=== PATIENT | female | born 1955 | race Caucasian/White ===

== ENCOUNTER 2018-11-21 15:22 | Inpatient (IN) | payer SELFPAY ==
--- NOTE | 2018-11-21 15:31 | PDOC ---
History of Present Illness - General Stated Complaint: SEIZURE Time Seen by Provider: 11/21/18 15:31 History Source: Patient, Family Exam Limitations: Clinical Condition - History of Present Illness Initial Comments: History is limited bc patient is confused and post-ictal. History provided by patient's family members who are at bedside. 63 yo F w a hx of HTN on amlodipine and chronic headaches presents to the ER after she had a seizure at her primary care doctors office - Dr. Escudero. The patient became very stiff, started foaming at the mouth and lost control of her bowels and urine. The daughter states that her mom has not been feeling well for the past few days. She has been complaining of body aches, body pains, subjective fevers, decreased appetite, and bilateral stress like headache. The patient tried letting it pass but bc it did not go away she went to her PCP's office. The primary doc believes this might be the flu. The patient has no history of prior seizures. PCP: Carol Escudero - [phone] Neurologist: Natalya Eden - [phone] PSH: None reported Social Hx: Denies smoking, drinking, or other substance usage Allergies: NKA, NKDA Past History - Past Medical History Allergies/Adverse Reactions: Allergies Allergy/AdvReac Type Severity Reaction Status Date / Time No Known Allergies Allergy Verified 05/13/18 18:06 Home Medications: Ambulatory Orders Acetic Acid 2% Otic Soln [Vosol 2% Ear Drops -] 3 drop Q6H #1 bottle Azithromycin [Zithromax Z-WARREN (5 DAYS)] 250 mg PO DAILY #6 tablet 03/30/15 Asthma: Yes CVA: No COPD: No HTN: Yes - Surgical History Neurologic Surgery: (BACK) - Immunization History Immunization Up to Date: Yes - Suicide/Smoking/Psychosocial Hx Smoking History: Never smoked Have you smoked in the past 12 months: No Hx Alcohol Use: No Drug/Substance Use Hx: No Substance Use Type: None Review of Systems - Review of Systems Able to Perform ROS?: No (Patient is post-ictal) *Physical Exam - Physical Exam General Appearance: Yes: Nourished, Appropriately Dressed, Obese HEENT: positive: EOMI, JAVIER, Normal ENT Inspection, Normal Voice Neck: positive: Trachea midline, Supple. negative: Lymphadenopathy (R), Lymphadenopathy (L) Respiratory/Chest: positive: Lungs Clear, Normal Breath Sounds. negative: Respiratory Distress, Accessory Muscle Use Cardiovascular: positive: Regular Rhythm, Regular Rate, S1, S2 Vascular Pulses: Dorsalis-Pedis (R): 2+, Doralis-Pedis (L): 2+ Gastrointestinal/Abdominal: positive: Normal Bowel Sounds, Tender (RUQ), Soft Rectal Exam: positive: deferred Lymphatic: negative: Adenopathy Musculoskeletal: positive: Normal Inspection. negative: CVA Tenderness, Decreased Range of Motion Extremity: positive: Normal Capillary Refill, Normal Inspection, Normal Range of Motion Integumentary: positive: Dry, Warm, Pale Neurologic: positive: Normal Response, Confused, Disoriented ED Treatment Course - LABORATORY CBC & Chemistry Diagram: 11/21/18 15:46 11/21/18 15:46 Medical Decision Making - Medical Decision Making History is limited bc patient is confused and post-ictal. History provided by patient's family members who are at bedside. 63 yo F w a hx of HTN on amlodipine and chronic headaches presents to the ER after she had a seizure at her primary care doctors office - Dr. Escudero. The patient became very stiff, started foaming at the mouth and lost control of her bowels and urine. The daughter states that her mom has not been feeling well for the past few days. She has been complaining of body aches, body pains, subjective fevers, decreased appetite, and bilateral stress like headache. The patient tried letting it pass but bc it did not go away she went to her PCP's office. The primary doc believes this might be the flu. The patient has no history of prior seizures. VS: Febrile to 100.4, otherwise wnl DDx IBNLT: Seizure, brain bleed, PNA, cholecystitis, influenza, electrolyte/ metabolic disturbance Plan: Labs, Urine, Head CT, CXR, EKG, RUQ US, re-assess. Bedside RUQ US shows no stones or signs supportive of cholecystitis. Influenza A positive - Patient given tamiflu in ED. Head CT shows no acute pathology. Will admit patient to hospital as this is her first time seizure. Attending spoke with Dr. Clark as a neuro consult - " d/w dr clark, nuerology. recommend no AED at this time as first seizure in setting of infection, will see pt on admission as a consult. " - Consult placed to Dr. clark. *DC/Admit/Observation/Transfer Diagnosis at time of Disposition: Seizure, Influenza A - Discharge Dispostion Condition at time of disposition: Stable Decision to Admit order: Yes - Referrals - Patient Instructions - Post Discharge Activity
[2018-11-21] MEDS ORDERED: SODIUM CHLORIDE 1,000 ML IV ONE (15:36)
[2018-11-21 15:46] VITALS: BMI 24.7
[2018-11-21 16:22] LABS: BASO % 0.4 % (0-2.0); EOS % 0.5 % (0-4.5); HEMATOCRIT 36.4 % (32.4-45.2); HEMOGLOBIN 12.7 GM/dL (10.7-15.3); LYMPH % 8.9 % (8-40); MCH 32.1 pg (25.7-33.7); MCHC 34.8 g/dl (32.0-36.0); MEAN CELL VOLUME 92.2 fl (80-96); MEAN PLT VOLUME 11.1 fl (7.5-11.1); MONO % 9.7 % (3.8-10.2); NEUT % 80.5 % (42.8-82.8); PLATELET COUNT 127 K/MM3 (134-434); RBC 3.95 M/mm3 (3.60-5.2); RDW 13.2 % (11.6-15.6); WHITE BLOOD COUNT 7.5 K/mm3 (4.0-10.0)
[2018-11-21 16:40] LABS: ALBUMIN 3.5 g/dl (3.4-5.0); ALK PHOS 98 U/L (45-117); ANION GAP 8 MMOL/L (8-16); BILIRUBIN,TOTAL 0.4 mg/dL (0.2-1); BLOOD UREA NITROGEN 10 mg/dL (7-18); CALCIUM 8.7 mg/dL (8.5-10.1); CHLORIDE 101 mmol/L (98-107); CO2 23 mmol/L (21-32); CREATININE 0.7 mg/dL (0.55-1.3); GLUCOSE,RANDOM 107 mg/dL (74-106); POTASSIUM 3.4 mmol/L (3.5-5.1); SGOT/AST 28 U/L (15-37); SGPT/ALT 29 U/L (13-61); SODIUM 133 mmol/L (136-145); TOT PROT 7.7 g/dl (6.4-8.2)
[2018-11-21 16:48] LABS: INR 1.06 (0.83-1.09); PROTHROMBIN TIME (PATIENT) 12.5 SEC (9.7-13.0)
[2018-11-21 16:51] LABS: ACTIVATED PTT 36.1 SECONDS (25.2-36.5)
--- NOTE | 2018-11-21 17:10 | PDOC ---
Documentation entered by Willow Lema SCRIBE, acting as scribe for Zaida Hearn MD. Zaida Hearn MD: This documentation has been prepared by the Pita posada Adrianna, SCRIBE, under my direction and personally reviewed by me in its entirety. I confirm that the documentation accurately reflects all work, treatment, procedures, and medical decision making performed by me. Attending Attestation - Resident Resident Name: Ranjith Burdick - ED Attending Attestation I have performed the following: I have examined & evaluated the patient, The case was reviewed & discussed with the resident, I agree w/resident's findings & plan, Exceptions are as noted - HPI HPI: The patient is a 63 year old female, with a significant PMH of HTN, asthma, and chronic headaches, who presents to the emergency department s/p seizure prior to arrival. As per patients family at bedside, she was at the [facility] for treatment of fever, cough, and headache (began 2 days ago), when she became stiff and started to foam at the mouth. They note that she blanked out and her gaze shifted to the left. Patient also had urinary and bowel incontinence during this episode. They note that her seizure lasted for approximately one minute. Patient was given 2 Tylenol in the clinic following the epileptic episode. They deny any use of albutrol pump recently. She endorses headache and RUQ tenderness while in the ED. The patient denies chest pain, shortness of breath, headache and dizziness. Denies fever, chills, nausea, vomit, diarrhea and constipation. Denies dysuria, frequency, urgency and hematuria. Denies any changes to her daily medications. Denies any history of seizure or stroke in the past. Allergies: NKA Past surgical history: Cosmetic abdominal surgery Social history: No reported PCP: Dr. Carol Escudero Neurologist: Dr. Natalya Eden Nail Polish Brush Machine Feeder: Dr. Charles 11/21/18 17:17 - Physicial Exam PE: 11/21/18 17:02 awake alert lungs with expiratory wheezing bilaterally. heart rrr no mrg abd soft ruq ttp. no rebound no guarding. ext wwp nuero alert oriente x 3. moves all four problems. skin warm and dry. - Medical Decision Making 11/21/18 17:03 63 yo F with h/o asthma, here with new onset seizure. pt was at clinic being seen for one day of fever, cough wheezing. did not use albuterol at home. while at office receiving a albuterol inhaler neb treatent. pt has seizure. witnessed and recorded by her daughter, eyes off to right, with ridigity followed by fever. incontienent. seizure lasted few minutes now at baseline on exam pt with wheezing, alert and oriented. ruq ttp. plan / differntial ich infectious cause siezure, uti pneuomonia, cholecysitits , pancreatitis, gastritis. plan ruq sono, ct head, labs cultures. 11/21/18 18:32 focused ED us RUQ indication ruq pain fever r/o cholecystitis gallbladder scanned in two planes. no stones noted. no wall thickening, no wall edema. cbd normal 2.8 mm. anterior gallbladder wall normal <4 mm negative sonographic miguel's bilat renal us perfomred, indication right sided abd. no hydroneprhosis noted. normal appearing kidney, no renal cyst. bladder nondistended. impression: normal renal us. will admit pt with influenzae positive, h/o asthma and wheezing. will given tamiflu head ct unremarkable. d/w dr clark, nuerology. recommend no AED at this time as first seizure in setting of infection, will see pt on admission as a consult. 11/21/18 18:36 11/21/18 18:43 EXAM#: TYPE/EXAM: RESULT: [id number] CT/HEAD CT WITHOUT CONTRAST Cranial CT without contrast Clinical information given : neuro/altered mental status/ headache Impression: No definite CT evidence of acute intracranial pathology. Paranasal sinus disease. Reported By: Clement Salinas MD 11/21/18 18:17 11/21/18 18:58
[2018-11-21] MEDS ORDERED: ALBUTEROL SO4 2.5/IPRATROPIUM 0.5 INH SOL 3 ML VIAL.NEB. NEB ONE ×2 (17:12→17:19)
[2018-11-21] MEDS ORDERED: OSELTAMIVIR PHOSPHATE 75 MG CAPSULE PO ONE (18:35)
[2018-11-21 18:43] LABS: EPI CELLS 0.4 /HPF (0-5/HPF); PH,URINE 6.5 (5.0-8.0); URINE APPEARANCE CLEAR; URINE BACTERIA 16.1 /hpf (NEGATIVE); URINE BILIRUBIN NEGATIVE (NEGATIVE); URINE CASTS 1 /lpf (0-8); URINE COLOR YELLOW; URINE GLUCOSE (UA) NEGATIVE (NEGATIVE); URINE KETONE 1+ (NEGATIVE); URINE LEUK ESTERASE TRACE (NEGATIVE); URINE NITRITE NEGATIVE (NEGATIVE); URINE PROTEIN NEGATIVE (NEGATIVE); URINE RBC 5 /hpf (0-4); URINE UROBILINOGEN 0.2 mg/dL (0.2-1.0); URINE WBC 1 /hpf (0-5)
[2018-11-21] MEDS ORDERED: POTASSIUM CHLORIDE ORAL LIQUID 20 MEQ/15 ML PO ONE (18:43)
[2018-11-21] MEDS ORDERED: OSELTAMIVIR PHOSPHATE 75 MG CAPSULE ONE (18:46)
[2018-11-21] MEDS ORDERED: POTASSIUM CHLORIDE ORAL LIQUID 20 MEQ/15 ML ONE (19:13)
--- NOTE | 2018-11-21 20:23 | PN ---
Teaching Attending Note Name of Resident: Priyanka Tadeo ATTENDING PHYSICIAN STATEMENT I saw and evaluated the patient. I reviewed the resident's note and discussed the case with the resident. I agree with the resident's findings and plan as documented. SUBJECTIVE: Seen and examined; please see resident note for further historical information. Briefly, patient is a 63 y/o female presenting to the hospital with new onset seizure. She was at her PCP's office for several days of nonspecific viral sx and while getting a nebulizer treatment noted to go 'stiff' and have loss of bowel and bladder funciton. Lasted <1 min; had residual tingling and some blurred vision which is improving. No recent trauma, etc. HAs seen outside neurologist before in the past for headaches; had recent negative MRI. Was told she needed ablation for PVCs in the past but has not gotten it; denies any cardio/pulm sx. She was found to be flu A positive in the ER. Neurology called by the ER and will see in the AM. 10 sys ROS done and negative aside from HPI PMH, PSH, FH, SH reviewed Home Medications Medication Instructions Recorded Albuterol Sulfate Inhaler - 2 inh PO Q6H PRN 11/21/18 [Ventolin Hfa Inhaler -] Amlodipine Besylate 10 mg PO DAILY 11/21/18 Mirtazapine 15 mg PO HS 11/21/18 OBJECTIVE: VS, labs, imaging reviewed NAD, AAO, resting comfortably in bed NC AT EOMI PERRLA RRR s1/2 no mgr Lungs CTAB, w/ sym exp NT ND +BS CN2-12 wnl, no fnd, moves all 4 extremities, no apparent visual field deficits Normal mood, appropriate behavior ASSESSMENT AND PLAN: Patient presents with suspected new-onset seizure found to be flu A positive 1) Suspected new-onset seizure -Neuro checks and seizure precautions -Ultimate management per neurology; no AEDs requested. Will go ahead and monitor and give abortive tx if needed. -Check TSH, B12, thiamine. Negative CT. Further diagnostics per subspecialty services -Call OP neurologist in AM (Dr. Eden) and obtain old MRI, etc. 2) Influenza A -Continue tamiflu 3) HTN -Continue amlodipine 4) Hx arrhythmia -Followup OP; asymptomatic 5) Hypokalemia -Repleted in ER Full code
[2018-11-21] MEDS ORDERED: ACETAMINOPHEN 1000 MG/100 ML VIAL (NON FORMULARY) IVPB ONE (20:53)
[2018-11-21] MEDS ORDERED: ACETAMINOPHEN INJECTION 100 ML IVPB ONE (20:54)
[2018-11-21] MEDS ORDERED: LORazepam 2 MG/ML SDV VIAL IVPUSH PRN (20:59)
[2018-11-21] MEDS ORDERED: ALBUTEROL SO4 8 GM HFA INHALER IH PRN (21:01)
--- NOTE | 2018-11-21 21:24 | HP ---
CHIEF COMPLAINT: s/p sz PCP: Dr. Carol Escudero HISTORY OF PRESENT ILLNESS: 63 y/o F with PMH HTN, asthma, chronic GARCIA (dx few months ago), "cardiac arrythmia" (never received ablation, PVC's), who presents to the ED s/p seizure that occurred this afternoon. As per pt and children at bedside, pt had been feeling unwell over the past two days. She endorsed a fever to 101F, nonproductive cough, and exacerbation of her usual, chronic GARCIA. Also had decreased PO intake. For this reason, she decided to go to her PCP, Dr. Escudero today for evaluation. While sitting on the examination table, pt c/o nausea, and that she was unable to see. Immediately after, she slumped over, lying down on the examination table. Her eyes rolled back and then to her right side, and her extremities stiffened. Pt had bowel and bladder incontinence. Lasted for less than a minute. When children witnessed the event, they called a nurse in who recommended that pt be brought to [facility] for further evaluation. After event, pt lethargic, but not confused. No focal neuro deficits but does c/o mild blurred vision and tingling in her extremities. No sick contacts. Denies chills , SOB, chest pain or pressure. No head trauma or fall. Of note, pt has been w/u for chronic GARCIA with neuro Dr. Ammy Eden and has had a brain MRI done which was negative. Was also prescribed ibuprofen and "another medication" for GARCIA, but pt was non-compliant. She uses CBD for her pain and states that it helps. She has also been w/u for cardiac arrhythmia with Dr. Charles of [facility]. Was dx with PVCs and recommended ablation, however her procedure was "always pushed back" as something continually came up , as per children. ER course was notable for: (1) duoneb x 1 (2) tamiflu 75mg (3) kcl 40meq (4) NS 1L Recent Travel: denies PAST MEDICAL HISTORY: as above PAST SURGICAL HISTORY: tummy tuck, liposuction Social History: Smoking: denies Alcohol: denies Drugs: denies Family History: sister- age 34 stroke, aunt- stroke Allergies No Known Allergies Allergy (Verified 11/21/18 20:06) HOME MEDICATIONS: Home Medications Medication Instructions Recorded Albuterol Sulfate Inhaler - 2 inh PO Q6H PRN 11/21/18 [Ventolin Hfa Inhaler - uses NEB tx PRN -] Amlodipine Besylate 10 mg PO DAILY 11/21/18 verified with patient and family REVIEW OF SYSTEMS CONSTITUTIONAL: Absent: fever, chills, diaphoresis, generalized weakness, malaise, loss of appetite, weight change HEENT: Absent: rhinorrhea, nasal congestion, throat pain, throat swelling, difficulty swallowing, mouth swelling, ear pain, eye pain, visual changes CARDIOVASCULAR: Absent: chest pain, syncope, palpitations, irregular heart rate, lightheadedness , peripheral edema RESPIRATORY: Absent: cough, shortness of breath, dyspnea with exertion, orthopnea, wheezing, stridor, hemoptysis GASTROINTESTINAL: Absent: abdominal pain, abdominal distension, nausea, vomiting, diarrhea, constipation, melena, hematochezia GENITOURINARY: Absent: dysuria, frequency, urgency, hesitancy, hematuria, flank pain, genital pain MUSCULOSKELETAL: Absent: myalgia, arthralgia, joint swelling, back pain, neck pain SKIN: Absent: rash, itching, pallor HEMATOLOGIC/IMMUNOLOGIC: Absent: easy bleeding, easy bruising, lymphadenopathy, frequent infections ENDOCRINE: Absent: unexplained weight gain, unexplained weight loss, heat intolerance, cold intolerance NEUROLOGIC: +seizure, headache, bladder and bowel incontinence. Absent: headache, focal weakness or paresthesias, dizziness, unsteady gait, seizure, mental status changes, bladder or bowel incontinence PSYCHIATRIC: Absent: anxiety, depression, suicidal or homicidal ideation, hallucinations. PHYSICAL EXAMINATION Vital Signs 11/21/18 20:50 Temperature 100.5 F H Pulse Rate Pulse Rate [ 88 Radial] Respiratory 20 Rate Blood Pressure Blood Pressure 115/58 L [Right Arm] O2 Sat by Pulse 100 Oximetry (%) GENERAL: Sweaty, sleepy. Awake, alert, and fully oriented, in no acute distress. HEAD: Normal with no signs of trauma. EYES: Pupils equal, round and reactive to light, extraocular movements intact, sclera anicteric, conjunctiva clear. EARS, NOSE, THROAT: Ears normal, nares patent, oropharynx clear without exudates. Moist mucous membranes. NECK: Normal range of motion, supple LUNGS: +wheezing b/l HEART: Regular rate and rhythm, normal S1 and S2 without murmur, rub or gallop. ABDOMEN: Soft, +RUQ tenderness on deep palpation. not distended, normoactive bowel sounds LOWER EXTREMITIES: 2+ pt pulses, warm, well-perfused. No calf tenderness. No peripheral edema. NEUROLOGICAL: Cranial nerves II-XII intact.no focal n. deficits. 5/5 motor strength UE, LE. PSYCHIATRIC: Cooperative. Good eye contact. SKIN: Warm, dry, normal turgor Laboratory Results 11/21/18 11/21/18 11/21/18 15:46 15:46 15:46 WBC 7.5 Hgb 12.7 Hct 36.4 Plt Count 127 L Sodium 133 L Potassium 3.4 L BUN 10 Creatinine 0.7 Creat Clearance w eGFR 84.79 Random Glucose 107 H Lactic Acid AST 28 ALT 29 Ammonia Troponin I < 0.02 Ur Specific [employer] 1.008 L Urine Protein Negative Urine Glucose (UA) Negative Urine Ketones 1+ H U Epithel Cells (Auto) 0.4 Urine Bacteria (Auto) 16.1 Influenza A (Rapid) 11/21/18 11/21/18 11/21/18 15:46 15:46 16:03 Lactic Acid 0.9 ALT Ammonia 12.20 Ur Specific [employer] Urine Bacteria (Auto) Influenza A (Rapid) Positive A EKG: NSR, no acute ST-t wave changes. biphasic twi v1, qtc ~330ms CXR: without acute abnormality. however official read pending. ASSESSMENT/PLAN: 63 y/o F with PMH HTN, asthma, chronic GARCIA (dx few months ago), "cardiac arrythmia" (never received ablation, PVC's), who presents to the ED s/p seizure that occurred this afternoon. #New onset sz -could be 2/2 flu, no metabolic derangements, CTH (-) for mass effect or bleed no hx epilepsy or fam hx of sz -sz precautions, elevate HOB, neurochecks -ED d/w neuro. no anti-epileptics at this time. will see pt tomorrow -neuro consult: Dr. Orourke. will also decide whether needs eeg -tx flu w/tamiflu 75mg BID. creatinine clearance 85 if contributing fx. -f/u b12, folate, tsh. utox (-) to check for inciting cause -can tx GARCIA or fever with tyenol PRN -tele monitoring #Flu+ -tx with tamiflu -iso precautions -team d/w family that they may need ppx #Thrombocytopenia -has not been w/u previously -HIV(-). f/u hep C testing. #RUQ pain -f/u RUQ sono to r/o stones #HTN-controlled -c/w amlodipine #hypokalemia -repleted in ED w/ 40 meq Kdur #F/E/N IV NS 100 cc/hr continue electrolytes na controlled diet, passed bedside swallow #PPX SCD's (has thrombocytopenia) #Dispo admit to tele Visit type - Emergency Visit Emergency Visit: Yes ED Registration Date: 11/21/18 Care time: The patient presented to the Emergency Department on the above date and was hospitalized for further evaluation of their emergent condition. - New Patient This patient is new to me today: Yes Date on this admission: 11/22/18 - Critical Care Critical Care patient: No
[2018-11-21] MEDS: SODIUM CHLORIDE 1,000 ML IV SCH ×2 (21:41→23:49)
[2018-11-22] MEDS: ALBUTEROL SO4 0.083% IH SOL 2.5 MG/3 ML VIAL.NEB. NEB PRN ×3 (01:22→12:34)
[2018-11-22 01:23] LABS: COCAINE, UR NEGATIVE ng/ml (CUTOFF=300); METHADONE, UR NEGATIVE ng/ml (CUTOFF=300); OPIATES, URI NEGATIVE ng/ml (CUTOFF=300); PHENCYCLIDINE,URINE NEGATIVE ng/ml (CUTOFF=25); URINE AMPHETAMINES NEGATIVE ng/ml (CUTOFF=500); URINE BARBITURATES NEGATIVE ng/ml (CUTOFF=200); URINE BENZODIAZEPINES NEGATIVE ng/ml (CUTOFF=200)
[2018-11-22] MEDS: ACETAMINOPHEN 325 MG TABLET (FP) PO PRN (05:32)
[2018-11-22 06:21] LABS: BASO % 0.7 % (0-2.0); EOS % 0.7 % (0-4.5); HEMATOCRIT 34.1 % (32.4-45.2); HEMOGLOBIN 11.5 GM/dL (10.7-15.3); LYMPH % 31.5 % (8-40); MCHC 33.7 g/dl (32.0-36.0); MEAN PLT VOLUME 10.9 fl (7.5-11.1); MONO % 18.6 % (3.8-10.2); NEUT % 48.5 % (42.8-82.8); PLATELET COUNT 123 K/MM3 (134-434); RBC 3.71 M/mm3 (3.60-5.2); RDW 13.4 % (11.6-15.6); WHITE BLOOD COUNT 5.1 K/mm3 (4.0-10.0)
[2018-11-22 08:44] LABS: ALK PHOS 81 U/L (45-117); ANION GAP 8 MMOL/L (8-16); BILIRUBIN,TOTAL 0.3 mg/dL (0.2-1); BLOOD UREA NITROGEN 8 mg/dL (7-18); CALCIUM 7.9 mg/dL (8.5-10.1); CHLORIDE 106 mmol/L (98-107); CO2 24 mmol/L (21-32); CREATININE 0.7 mg/dL (0.55-1.3); GLUCOSE,RANDOM 96 mg/dL (74-106); MAGNESIUM 1.9 mg/dL (1.8-2.4); PHOSPHOROUS 2.6 mg/dL (2.5-4.9); POTASSIUM 3.1 mmol/L (3.5-5.1); SGOT/AST 21 U/L (15-37); SGPT/ALT 24 U/L (13-61); SODIUM 138 mmol/L (136-145); TOT PROT 6.7 g/dl (6.4-8.2)
--- NOTE | 2018-11-22 09:06 | CONSULT ---
Consult - text type - Consultation Consultation Note: Neurology CHIEF COMPLAINT: s/p sz HISTORY OF PRESENT ILLNESS: 63 y/o F with PMH HTN, asthma, chronic GARCIA (dx few months ago), "cardiac arrythmia" (never received ablation, PVC's), who presented to the ED s/p seizure that occurred this afternoon. As per pt and children at bedside, pt had been feeling unwell over the two days prior to admission. She endorsed a fever to 101F, nonproductive cough, and exacerbation of her usual, chronic GARCIA. Also had decreased PO intake. For this reason, she decided to go to her PCP, Dr. Escudero on day of admission for evaluation. While sitting on the examination table , pt c/o nausea, and that she was unable to see. Immediately after, she slumped over, lying down on the examination table. Her eyes rolled back and then to her right side, and her extremities stiffened. Pt had bowel and bladder incontinence. Lasted for less than a minute. When children witnessed the event, they called a nurse in who recommended that pt be brought to [facility] for further evaluation. After event, pt lethargic, but not confused. No focal neuro deficits on admission. Of note, pt has been w/u for chronic GARCIA with neuro Dr. Ammy Eden and has had a brain MRI done which was negative. Was also prescribed ibuprofen and "another medication" for GARCIA, but pt was non-compliant. She uses CBD for her pain and states that it helps. She has also been w/u for cardiac arrhythmia with Dr. Charles of [facility]. Was dx with PVCs and recommended ablation, however her procedure was "always pushed back" as something continually came up , as per children. CT head completed in ED and no acute changes. Although the event is suspicious for seizure, would not start AEDs for first time as patient no prior history and in context of clear precipitant (infection). Management would be to treat underlying infection. Neurologically at baseline and mentating well this AM. Recent Travel: denies PAST MEDICAL HISTORY: as above PAST SURGICAL HISTORY: tummy tuck, liposuction Social History: Smoking: denies Alcohol: denies Drugs: denies Family History: sister- age 34 stroke, aunt- stroke Allergies No Known Allergies Allergy (Verified 11/21/18 20:06) HOME MEDICATIONS: Home Medications Medication Instructions Recorded Albuterol Sulfate Inhaler - 2 inh PO Q6H PRN 11/21/18 [Ventolin Hfa Inhaler - uses NEB tx PRN -] Amlodipine Besylate 10 mg PO DAILY 11/21/18 verified with patient and family REVIEW OF SYSTEMS CONSTITUTIONAL: Absent: fever, chills, diaphoresis, generalized weakness, malaise, loss of appetite, weight change HEENT: Absent: rhinorrhea, nasal congestion, throat pain, throat swelling, difficulty swallowing, mouth swelling, ear pain, eye pain, visual changes CARDIOVASCULAR: Absent: chest pain, syncope, palpitations, irregular heart rate, lightheadedness , peripheral edema RESPIRATORY: Absent: cough, shortness of breath, dyspnea with exertion, orthopnea, wheezing, stridor, hemoptysis GASTROINTESTINAL: Absent: abdominal pain, abdominal distension, nausea, vomiting, diarrhea, constipation, melena, hematochezia GENITOURINARY: Absent: dysuria, frequency, urgency, hesitancy, hematuria, flank pain, genital pain MUSCULOSKELETAL: Absent: myalgia, arthralgia, joint swelling, back pain, neck pain SKIN: Absent: rash, itching, pallor HEMATOLOGIC/IMMUNOLOGIC: Absent: easy bleeding, easy bruising, lymphadenopathy, frequent infections ENDOCRINE: Absent: unexplained weight gain, unexplained weight loss, heat intolerance, cold intolerance NEUROLOGIC: +seizure, headache, bladder and bowel incontinence. Absent: headache, focal weakness or paresthesias, dizziness, unsteady gait, seizure, mental status changes, bladder or bowel incontinence PSYCHIATRIC: Absent: anxiety, depression, suicidal or homicidal ideation, hallucinations. PHYSICAL EXAMINATION Vital Signs Temperature 101.7 F H 11/22/18 05:00 Pulse Rate 92 H 11/22/18 05:00 Respiratory Rate 20 11/22/18 05:00 Blood Pressure 107/43 L 11/22/18 05:00 O2 Sat by Pulse Oximetry (%) 96 11/21/18 23:00 GENERAL: Sweaty, sleepy. Awake, alert, and fully oriented, in no acute distress. HEAD: Normal with no signs of trauma. EYES: Pupils equal, round and reactive to light, extraocular movements intact, sclera anicteric, conjunctiva clear. EARS, NOSE, THROAT: Ears normal, nares patent, oropharynx clear without exudates. Moist mucous membranes. NECK: Normal range of motion, supple LUNGS: +wheezing b/l HEART: Regular rate and rhythm, normal S1 and S2 without murmur, rub or gallop. ABDOMEN: Soft, +RUQ tenderness on deep palpation. not distended, normoactive bowel sounds LOWER EXTREMITIES: 2+ pt pulses, warm, well-perfused. No calf tenderness. No peripheral edema. NEUROLOGICAL: Cranial nerves II-XII intact, moves all extremities equally, sensory intact, finger to nose normal PSYCHIATRIC: Cooperative. Good eye contact. SKIN: Warm, dry, normal turgor Laboratory Results 11/21/18 11/21/18 11/21/18 15:46 15:46 15:46 WBC 7.5 Hgb 12.7 Hct 36.4 Plt Count 127 L Sodium 133 L Potassium 3.4 L BUN 10 Creatinine 0.7 Creat Clearance w eGFR 84.79 Random Glucose 107 H Lactic Acid AST 28 ALT 29 Ammonia Troponin I < 0.02 Ur Specific [place] 1.008 L Urine Protein Negative Urine Glucose (UA) Negative Urine Ketones 1+ H U Epithel Cells (Auto) 0.4 Urine Bacteria (Auto) 16.1 Influenza A (Rapid) 11/21/18 11/21/18 11/21/18 15:46 15:46 16:03 Lactic Acid 0.9 ALT Ammonia 12.20 Ur Specific [place] Urine Bacteria (Auto) Influenza A (Rapid) Positive A EKG: NSR, no acute ST-t wave changes. biphasic twi v1, qtc ~330ms CXR: without acute abnormality. however official read pending. ASSESSMENT/PLAN: 63 y/o F with PMH HTN, asthma, chronic GARCIA (dx few months ago), "cardiac arrythmia" (never received ablation, PVC's), who presented to the ED s/p seizure that occurred this afternoon. As per pt and children at bedside, pt had been feeling unwell over the two days prior to admission. She endorsed a fever to 101F, nonproductive cough, and exacerbation of her usual, chronic GARCIA. Also had decreased PO intake. For this reason, she decided to go to her PCP, Dr. Escudero on day of admission for evaluation. While sitting on the examination table , pt c/o nausea, and that she was unable to see. Immediately after, she slumped over, lying down on the examination table. Her eyes rolled back and then to her right side, and her extremities stiffened. Pt had bowel and bladder incontinence. Lasted for less than a minute. When children witnessed the event, they called a nurse in who recommended that pt be brought to [facility] for further evaluation. After event, pt lethargic, but not confused. No focal neuro deficits on admission. CT head completed in ED and no acute changes. Although the event is suspicious for seizure, would not start AEDs for first time as patient no prior history and in context of clear precipitant (infection). Management would be to treat underlying infection. Neurologically at baseline and mentating well this AM. Continue Tamiflu, tylenol PRN. Maintain hydration/ nutirition.
[2018-11-22] MEDS ORDERED: POTASSIUM CHLORIDE TABS 20 MEQ TABLET.ER (FP) PO ONE (09:39)
[2018-11-22 10:19] LABS: ANISOCYTOSIS 0; HELMET CELLS 0; HOWELL-JOLLY BODIES 0; MACROCYTOSIS 0; OVALOCYTE 0; PLATELET ESTIMATE DECREASED; ROULEAU 0; SICKELED CELLS 0; TARGET CELLS 0; TEAR DROP CELLS 0; TOXIC GRANULATION 0
--- NOTE | 2018-11-22 10:44 | EKG ---
Test Reason : Blood Pressure : / mmHG Vent. Rate : 082 BPM Atrial Rate : 082 BPM P-R Int : 160 ms QRS Dur : 082 ms QT Int : 386 ms P-R-T Axes : 058 026 061 degrees QTc Int : 450 ms NORMAL SINUS RHYTHM POSSIBLE LEFT ATRIAL ENLARGEMENT NONSPECIFIC T WAVE ABNORMALITY ABNORMAL ECG Confirmed by NOELLE TALLEY MD ([id number]) on 11/22/2018 10:44:02 AM Referred By: Confirmed By:NOLELE TALLEY MD
[2018-11-22] MEDS ORDERED: PT OWN MED DRAWER 7, Y5N ONE ×2 (10:54→20:55)
[2018-11-22] MEDS: OSELTAMIVIR PHOSPHATE 75 MG CAPSULE PO SCH ×2 (11:21→21:01)
[2018-11-22] MEDS: amLODIPine BESYLATE 10 MG TABLET (FP) PO SCH (11:21)
[2018-11-22] MEDS: KCL 10 MEQ IVPB 10 MEQ/100 ML INFUS.BAG IVPB SCH ×3 (11:22→17:06)
--- NOTE | 2018-11-22 15:00 | PN ---
Physical Exam: SUBJECTIVE: Patient seen and examined this AM in the presence of her family. No acute overnight events. Continues to have headache, otherwise No new complaints. OBJECTIVE: Vital Signs Period Temp Pulse Resp BP Sys/Faith Pulse Ox Last 24 Hr 98.6 F-101.7 F 81-116 20-22 107-122/43-89 96-100 GENERAL: A&Ox3, NAD HEAD: NCAT EYES: PERRL, EOMI ENT: Moist mucous membranes. NECK: Supple LUNGS: Wheezing throughout HEART: Regular rate and rhythm, S1, S2 without murmur ABDOMEN: Soft, nontender, nondistended, + bowel sounds, no guarding EXTREMITIES: No edema NEUROLOGICAL: Cranial nerves II through XII grossly intact. Gross sensation intact throughout. 5/5 muscle strength throughout. SKIN: Warm, dry Laboratory Last Values WBC 5.1 K/mm3 (4.0-10.0) 11/22/18 05:30 RBC 3.71 M/mm3 (3.60-5.2) 11/22/18 05:30 Hgb 11.5 GM/dL (10.7-15.3) 11/22/18 05:30 Hct 34.1 % (32.4-45.2) 11/22/18 05:30 MCV 92.0 fl (80-96) 11/22/18 05:30 MCH 31.0 pg (25.7-33.7) 11/22/18 05:30 MCHC 33.7 g/dl (32.0-36.0) 11/22/18 05:30 RDW 13.4 % (11.6-15.6) 11/22/18 05:30 Plt Count 123 K/MM3 (134-434) L 11/22/18 05:30 MPV 10.9 fl (7.5-11.1) 11/22/18 05:30 Absolute Neuts (auto) 2.5 K/mm3 (1.5-8.0) 11/22/18 05:30 Neutrophils % 48.5 % (42.8-82.8) D 11/22/18 05:30 Neutrophils % (Manual) 46.1 % (42.8-82.8) 11/22/18 05:30 Band Neutrophils % 1.9 % 11/22/18 05:30 Lymphocytes % 31.5 % (8-40) D 11/22/18 05:30 Lymphocytes % (Manual) 33.7 % (8-40) 11/22/18 05:30 Monocytes % 18.6 % (3.8-10.2) H D 11/22/18 05:30 Monocytes % (Manual) 18 % (3.8-10.2) H 11/22/18 05:30 Eosinophils % 0.7 % (0-4.5) 11/22/18 05:30 Eosinophils % (Manual) 0.0 % (0-4.5) 11/22/18 05:30 Basophils % 0.7 % (0-2.0) 11/22/18 05:30 Basophils % (Manual) 0.0 % (0-2.0) 11/22/18 05:30 Myelocytes % (Man) 0 % (0-2) 11/22/18 05:30 Promyelocytes % (Man) 0 % (0-2) 11/22/18 05:30 Blast Cells % (Manual) 0 % (0-0) 11/22/18 05:30 Nucleated RBC % 0 % (0-0) 11/22/18 05:30 Metamyelocytes 0 % (0-2) 11/22/18 05:30 Hypochromia 0 11/22/18 05:30 Toxic Granulation 0 11/22/18 05:30 Dohle Bodies 0 11/22/18 05:30 Platelet Estimate Decreased 11/22/18 05:30 Polychromasia 0 11/22/18 05:30 Poikilocytosis 0 11/22/18 05:30 Basophilic Stippling 0 11/22/18 05:30 Anisocytosis 0 11/22/18 05:30 Microcytosis 0 11/22/18 05:30 Macrocytosis 0 11/22/18 05:30 Spherocytes 0 11/22/18 05:30 Sickle Cells 0 11/22/18 05:30 Target Cells 0 11/22/18 05:30 Tear Drop Cells 0 11/22/18 05:30 Ovalocytes 0 11/22/18 05:30 Stomatocytes 0 11/22/18 05:30 Helmet Cells 0 11/22/18 05:30 [place] Bodies 0 11/22/18 05:30 [place] Rings 0 11/22/18 05:30 [place] Cells 0 11/22/18 05:30 Acanthocytes (Spur) 0 11/22/18 05:30 Rouleaux 0 11/22/18 05:30 Fragmented RBCs 0 11/22/18 05:30 Schistocytes 0 11/22/18 05:30 PT with INR 12.50 SEC (9.7-13.0) 11/21/18 15:46 INR 1.06 (0.83-1.09) 11/21/18 15:46 PTT (Actin FS) 36.1 SECONDS (25.2-36.5) 11/21/18 15:46 Sodium 138 mmol/L (136-145) 11/22/18 05:30 Potassium 3.1 mmol/L (3.5-5.1) L 11/22/18 05:30 Chloride 106 mmol/L (98-107) 11/22/18 05:30 Carbon Dioxide 24 mmol/L (21-32) 11/22/18 05:30 Anion Gap 8 MMOL/L (8-16) 11/22/18 05:30 BUN 8 mg/dL (7-18) 11/22/18 05:30 Creatinine 0.7 mg/dL (0.55-1.3) 11/22/18 05:30 Creat Clearance w eGFR 84.79 (>60) 11/22/18 05:30 Random Glucose 96 mg/dL (74-106) 11/22/18 05:30 Hemoglobin A1c % 5.8 % (4.2-6.3) 11/21/18 15:46 Lactic Acid 0.9 mmol/L (0.4-2.0) 11/21/18 15:46 Calcium 7.9 mg/dL (8.5-10.1) L 11/22/18 05:30 Phosphorus 2.6 mg/dL (2.5-4.9) 11/22/18 05:30 Magnesium 1.9 mg/dL (1.8-2.4) 11/22/18 05:30 Total Bilirubin 0.3 mg/dL (0.2-1) 11/22/18 05:30 AST 21 U/L (15-37) 11/22/18 05:30 ALT 24 U/L (13-61) 11/22/18 05:30 Alkaline Phosphatase 81 U/L (45-117) 11/22/18 05:30 Ammonia 12.20 umol/L (11-32) 11/21/18 15:46 Creatine Kinase 96 U/L (26-192) 11/21/18 15:46 Troponin I < 0.02 ng/ml (0.00-0.05) 11/21/18 15:46 Total Protein 6.7 g/dl (6.4-8.2) 11/22/18 05:30 Albumin 3.0 g/dl (3.4-5.0) L 11/22/18 05:30 Vitamin B12 1459 pg/ml (193-986) H 11/22/18 05:30 Serum Folate 24 ng/mL (3.1-17.5) H 11/22/18 05:30 TSH 0.52 uIU/ml (0.358-3.74) 11/21/18 21:25 Free T4 1.04 ng/dl (0.76-1.46) 11/21/18 21:25 Urine Color Yellow 11/21/18 15:46 Urine Appearance Clear 11/21/18 15:46 Urine pH 6.5 (5.0-8.0) 11/21/18 15:46 Ur Specific [place] 1.008 (1.010-1.035) L 11/21/18 15:46 Urine Protein Negative (NEGATIVE) 11/21/18 15:46 Urine Glucose (UA) Negative (NEGATIVE) 11/21/18 15:46 Urine Ketones 1+ (NEGATIVE) H 11/21/18 15:46 Urine Blood Negative (NEGATIVE) 11/21/18 15:46 Urine Nitrite Negative (NEGATIVE) 11/21/18 15:46 Urine Bilirubin Negative (NEGATIVE) 11/21/18 15:46 Urine Urobilinogen 0.2 mg/dL (0.2-1.0) 11/21/18 15:46 Ur Leukocyte Esterase Trace (NEGATIVE) 11/21/18 15:46 Urine WBC (Auto) 1 /hpf (0-5) 11/21/18 15:46 Urine RBC (Auto) 5 /hpf (0-4) 11/21/18 15:46 Urine Casts (Auto) 1 /lpf (0-8) 11/21/18 15:46 U Epithel Cells (Auto) 0.4 /HPF (0-5/HPF) 11/21/18 15:46 Urine Bacteria (Auto) 16.1 /hpf (NEGATIVE) 11/21/18 15:46 Opiates Screen Negative ng/ml (YZRIEH=774) 11/22/18 00:05 Methadone Screen Negative ng/ml (RELITX=241) 11/22/18 00:05 Barbiturate Screen Negative ng/ml (CBNKMX=534) 11/22/18 00:05 Phencyclidine Screen Negative ng/ml (CUTOFF=25) 11/22/18 00:05 Ur Amphetamines Screen Negative ng/ml (HTFMAZ=270) 11/22/18 00:05 MDMA (Ecstasy) Screen Negative ng/ml (EOMAUE=872) 11/22/18 00:05 Benzodiazepines Screen Negative ng/ml (AJEDVQ=399) 11/22/18 00:05 Cocaine Screen Negative ng/ml (UKOTYE=879) 11/22/18 00:05 U Marijuana (THC) Screen Negative ng/ml (CUTOFF=50) 11/22/18 00:05 HIV 1&2 Antibody Screen Negative 11/21/18 22:31 HIV P24 Antigen Negative 11/21/18 22:31 Influenza A (Rapid) Positive A 11/21/18 16:03 Influenza B (Rapid) Negative 11/21/18 16:03 Blood Type O NEGATIVE 11/21/18 15:46 Antibody Screen Negative 11/21/18 15:46 Active Medications Acetaminophen (Tylenol -) 650 mg PO Q6H PRN PRN Reason: FEVER Last Admin: 11/22/18 05:32 Dose: 650 mg Albuterol Sulfate (Ventolin 0.083% Nebulizer Soln -) 1 amp NEB Q4H PRN PRN Reason: SHORTNESS OF BREATH Last Admin: 11/22/18 12:34 Dose: 1 amp Amlodipine Besylate (Norvasc -) 10 mg PO DAILY [facility] Last Admin: 11/22/18 11:21 Dose: 10 mg Sodium Chloride (Normal Saline -) 1,000 mls @ 100 mls/hr IV ASDIR ESTUARDO Last Admin: 11/21/18 23:49 Dose: 100 mls/hr Lorazepam (Ativan Injection -) 1 mg IVPUSH Q6H PRN PRN Reason: SEIZURE Oseltamivir Phosphate (Tamiflu -) 75 mg PO BID [facility] Stop: 11/27/18 09:59 Last Admin: 11/22/18 11:21 Dose: 75 mg IMAGING: -Head CT without contrast: No definite CT evidence of acute intracranial pathology. Paranasal sinus disease. -CXR: No acute chest pathology. -Abdominal US: Unremarkable examination. Normal-appearing gallbladder without evidence of stones -EKG: NSR, VR 82, QTc 450 ASSESSMENT/PLAN: 63 y/o F with PMHx HTN, asthma, Chronic GARCIA, "cardiac arrythmia" (never received ablation, PVC's) presents with new-onset seizure. #New onset Seizure--Has returned to baseline -In the setting of Influenza +; Labwork thus far unrevealing for metabolic derangement -Head CT without contrast: No definite CT evidence of acute intracranial pathology -Seizure precautions, Elevate HOB -Neurochecks Q2H -Neurology (Dr. Orourke) consulted, Appreciate rec's -Continue to observe off of AntiEpileptic Drugs -Lorazepam for breakthrough seizure activity -Tele #Influenza -Continue Oseltamivir 75mg PO BID (started on 11/21) -Acetaminophen PRN for fever -Droplet precautions -NS @ 100 mls/hr #Thrombocytopenia -Continue to monitor for signs of active bleeding -Would benefit from out patient hematology workup #HTN-controlled -Amlodipine 10mg PO Daily #FEN -NS @ 100 mls/hr -Hypokalemia, repleted -Sodium controlled diet #PPX DVT: SCD's Visit type - Emergency Visit Emergency Visit: Yes ED Registration Date: 11/21/18 Care time: The patient presented to the Emergency Department on the above date and was hospitalized for further evaluation of their emergent condition. - New Patient This patient is new to me today: Yes Date on this admission: 11/22/18 - Critical Care Critical Care patient: No - Discharge Referral Referred to [facility] No
--- NOTE | 2018-11-22 15:50 | PN ---
Teaching Attending Note Name of Resident: Karen Delcid ATTENDING PHYSICIAN STATEMENT I saw and evaluated the patient. I reviewed the resident's note and discussed the case with the resident. I agree with the resident's findings and plan as documented. SUBJECTIVE: Patient reports having headache, body aches, chills. OBJECTIVE: Vital Signs Period Temp Pulse Resp BP Sys/Faith Pulse Ox Last 24 Hr 98.6 F-101.7 F 86-116 20-22 107-122/43-71 96-100 HEART: S1S2, tachycardic LUNGS: Diffuse end-expiratory wheezes ABDOMEN: Soft, non-tender, non-distended, normal BS EXTREMITIES: No edema Laboratory Results - last 24 hr 11/21/18 11/21/18 11/21/18 11:15 15:46 15:46 WBC 7.5 RBC 3.95 Hgb 12.7 Hct 36.4 MCV 92.2 MCH 32.1 MCHC 34.8 RDW 13.2 Plt Count 127 L MPV 11.1 Absolute Neuts (auto) 6.0 Neutrophils % 80.5 D Neutrophils % (Manual) Band Neutrophils % Lymphocytes % 8.9 D Lymphocytes % (Manual) Monocytes % 9.7 Monocytes % (Manual) Eosinophils % 0.5 Eosinophils % (Manual) Basophils % 0.4 Basophils % (Manual) Myelocytes % (Man) Promyelocytes % (Man) Blast Cells % (Manual) Nucleated RBC % 0 Metamyelocytes Hypochromia Toxic Granulation Dohle Bodies Platelet Estimate Polychromasia Poikilocytosis Basophilic Stippling Anisocytosis Microcytosis Macrocytosis Spherocytes Sickle Cells Target Cells Tear Drop Cells Ovalocytes Stomatocytes Helmet Cells [place] Bodies [place] Rings [place] Cells Acanthocytes (Spur) Rouleaux Fragmented RBCs Schistocytes PT with INR 12.50 INR 1.06 PTT (Actin FS) 36.1 Sodium Potassium Chloride Carbon Dioxide Anion Gap BUN Creatinine Creat Clearance w eGFR Random Glucose Hemoglobin A1c % Lactic Acid Calcium Phosphorus Magnesium Total Bilirubin AST ALT Alkaline Phosphatase Ammonia Creatine Kinase Troponin I Total Protein Albumin Vitamin B12 Serum Folate TSH Free T4 Urine Color Urine Appearance Urine pH Ur Specific [place] Urine Protein Urine Glucose (UA) Urine Ketones Urine Blood Urine Nitrite Urine Bilirubin Urine Urobilinogen Ur Leukocyte Esterase Urine WBC (Auto) Urine RBC (Auto) Urine Casts (Auto) U Epithel Cells (Auto) Urine Bacteria (Auto) Opiates Screen Methadone Screen Barbiturate Screen Phencyclidine Screen Ur Amphetamines Screen MDMA (Ecstasy) Screen Benzodiazepines Screen Cocaine Screen U Marijuana (THC) Screen HIV 1&2 Antibody Screen HIV P24 Antigen Influenza A (Rapid) Influenza B (Rapid) Blood Type O NEGATIVE Antibody Screen 11/21/18 11/21/18 11/21/18 15:46 15:46 15:46 WBC RBC Hgb Hct MCV MCH MCHC RDW Plt Count MPV Absolute Neuts (auto) Neutrophils % Neutrophils % (Manual) Band Neutrophils % Lymphocytes % Lymphocytes % (Manual) Monocytes % Monocytes % (Manual) Eosinophils % Eosinophils % (Manual) Basophils % Basophils % (Manual) Myelocytes % (Man) Promyelocytes % (Man) Blast Cells % (Manual) Nucleated RBC % Metamyelocytes Hypochromia Toxic Granulation Dohle Bodies Platelet Estimate Polychromasia Poikilocytosis Basophilic Stippling Anisocytosis Microcytosis Macrocytosis Spherocytes Sickle Cells Target Cells Tear Drop Cells Ovalocytes Stomatocytes Helmet Cells [place] Bodies [place] Rings Sana Cells Acanthocytes (Spur) Rouleaux Fragmented RBCs Schistocytes PT with INR INR PTT (Actin FS) Sodium 133 L Potassium 3.4 L Chloride 101 Carbon Dioxide 23 Anion Gap 8 BUN 10 Creatinine 0.7 Creat Clearance w eGFR 84.79 Random Glucose 107 H Hemoglobin A1c % Lactic Acid Calcium 8.7 Phosphorus Magnesium Total Bilirubin 0.4 AST 28 ALT 29 Alkaline Phosphatase 98 Ammonia 12.20 Creatine Kinase 96 Troponin I < 0.02 Total Protein 7.7 Albumin 3.5 Vitamin B12 Serum Folate TSH Free T4 Urine Color Yellow Urine Appearance Clear Urine pH 6.5 Ur Specific [place] 1.008 L Urine Protein Negative Urine Glucose (UA) Negative Urine Ketones 1+ H Urine Blood Negative Urine Nitrite Negative Urine Bilirubin Negative Urine Urobilinogen 0.2 Ur Leukocyte Esterase Trace Urine WBC (Auto) 1 Urine RBC (Auto) 5 Urine Casts (Auto) 1 U Epithel Cells (Auto) 0.4 Urine Bacteria (Auto) 16.1 Opiates Screen Methadone Screen Barbiturate Screen Phencyclidine Screen Ur Amphetamines Screen MDMA (Ecstasy) Screen Benzodiazepines Screen Cocaine Screen U Marijuana (THC) Screen HIV 1&2 Antibody Screen HIV P24 Antigen Influenza A (Rapid) Influenza B (Rapid) Blood Type Antibody Screen 11/21/18 11/21/18 11/21/18 15:46 15:46 15:46 WBC RBC Hgb Hct MCV MCH MCHC RDW Plt Count MPV Absolute Neuts (auto) Neutrophils % Neutrophils % (Manual) Band Neutrophils % Lymphocytes % Lymphocytes % (Manual) Monocytes % Monocytes % (Manual) Eosinophils % Eosinophils % (Manual) Basophils % Basophils % (Manual) Myelocytes % (Man) Promyelocytes % (Man) Blast Cells % (Manual) Nucleated RBC % Metamyelocytes Hypochromia Toxic Granulation Dohle Bodies Platelet Estimate Polychromasia Poikilocytosis Basophilic Stippling Anisocytosis Microcytosis Macrocytosis Spherocytes Sickle Cells Target Cells Tear Drop Cells Ovalocytes Stomatocytes Helmet Cells [place] Bodies [place] Rings Sana Cells Acanthocytes (Spur) Rouleaux Fragmented RBCs Schistocytes PT with INR INR PTT (Actin FS) Sodium Potassium Chloride Carbon Dioxide Anion Gap BUN Creatinine Creat Clearance w eGFR Random Glucose Hemoglobin A1c % 5.8 Lactic Acid 0.9 Calcium Phosphorus Magnesium Total Bilirubin AST ALT Alkaline Phosphatase Ammonia Creatine Kinase Troponin I Total Protein Albumin Vitamin B12 Serum Folate TSH Free T4 Urine Color Urine Appearance Urine pH Ur Specific [place] Urine Protein Urine Glucose (UA) Urine Ketones Urine Blood Urine Nitrite Urine Bilirubin Urine Urobilinogen Ur Leukocyte Esterase Urine WBC (Auto) Urine RBC (Auto) Urine Casts (Auto) U Epithel Cells (Auto) Urine Bacteria (Auto) Opiates Screen Methadone Screen Barbiturate Screen Phencyclidine Screen Ur Amphetamines Screen MDMA (Ecstasy) Screen Benzodiazepines Screen Cocaine Screen U Marijuana (THC) Screen HIV 1&2 Antibody Screen HIV P24 Antigen Influenza A (Rapid) Influenza B (Rapid) Blood Type O NEGATIVE Antibody Screen Negative 11/21/18 11/21/18 11/21/18 16:03 21:25 22:31 WBC RBC Hgb Hct MCV MCH MCHC RDW Plt Count MPV Absolute Neuts (auto) Neutrophils % Neutrophils % (Manual) Band Neutrophils % Lymphocytes % Lymphocytes % (Manual) Monocytes % Monocytes % (Manual) Eosinophils % Eosinophils % (Manual) Basophils % Basophils % (Manual) Myelocytes % (Man) Promyelocytes % (Man) Blast Cells % (Manual) Nucleated RBC % Metamyelocytes Hypochromia Toxic Granulation Dohle Bodies Platelet Estimate Polychromasia Poikilocytosis Basophilic Stippling Anisocytosis Microcytosis Macrocytosis Spherocytes Sickle Cells Target Cells Tear Drop Cells Ovalocytes Stomatocytes Helmet Cells [place] Bodies [place] Rings [place] Cells Acanthocytes (Spur) Rouleaux Fragmented RBCs Schistocytes PT with INR INR PTT (Actin FS) Sodium Potassium Chloride Carbon Dioxide Anion Gap BUN Creatinine Creat Clearance w eGFR Random Glucose Hemoglobin A1c % Lactic Acid Calcium Phosphorus Magnesium Total Bilirubin AST ALT Alkaline Phosphatase Ammonia Creatine Kinase Troponin I Total Protein Albumin Vitamin B12 Serum Folate TSH 0.52 Free T4 1.04 Urine Color Urine Appearance Urine pH Ur Specific [place] Urine Protein Urine Glucose (UA) Urine Ketones Urine Blood Urine Nitrite Urine Bilirubin Urine Urobilinogen Ur Leukocyte Esterase Urine WBC (Auto) Urine RBC (Auto) Urine Casts (Auto) U Epithel Cells (Auto) Urine Bacteria (Auto) Opiates Screen Methadone Screen Barbiturate Screen Phencyclidine Screen Ur Amphetamines Screen MDMA (Ecstasy) Screen Benzodiazepines Screen Cocaine Screen U Marijuana (THC) Screen HIV 1&2 Antibody Screen Negative HIV P24 Antigen Negative Influenza A (Rapid) Positive A Influenza B (Rapid) Negative Blood Type Antibody Screen 11/22/18 11/22/18 11/22/18 00:05 05:30 05:30 WBC 5.1 RBC 3.71 Hgb 11.5 Hct 34.1 MCV 92.0 MCH 31.0 MCHC 33.7 RDW 13.4 Plt Count 123 L MPV 10.9 Absolute Neuts (auto) 2.5 Neutrophils % 48.5 D Neutrophils % (Manual) 46.1 Band Neutrophils % 1.9 Lymphocytes % 31.5 D Lymphocytes % (Manual) 33.7 Monocytes % 18.6 H D Monocytes % (Manual) 18 H Eosinophils % 0.7 Eosinophils % (Manual) 0.0 Basophils % 0.7 Basophils % (Manual) 0.0 Myelocytes % (Man) 0 Promyelocytes % (Man) 0 Blast Cells % (Manual) 0 Nucleated RBC % 0 Metamyelocytes 0 Hypochromia 0 Toxic Granulation 0 Dohle Bodies 0 Platelet Estimate Decreased Polychromasia 0 Poikilocytosis 0 Basophilic Stippling 0 Anisocytosis 0 Microcytosis 0 Macrocytosis 0 Spherocytes 0 Sickle Cells 0 Target Cells 0 Tear Drop Cells 0 Ovalocytes 0 Stomatocytes 0 Helmet Cells 0 [place] Bodies 0 [place] Rings 0 [place] Cells 0 Acanthocytes (Spur) 0 Rouleaux 0 Fragmented RBCs 0 Schistocytes 0 PT with INR INR PTT (Actin FS) Sodium 138 Potassium 3.1 L Chloride 106 Carbon Dioxide 24 Anion Gap 8 BUN 8 Creatinine 0.7 Creat Clearance w eGFR 84.79 Random Glucose 96 Hemoglobin A1c % Lactic Acid Calcium 7.9 L Phosphorus 2.6 Magnesium 1.9 Total Bilirubin 0.3 AST 21 ALT 24 Alkaline Phosphatase 81 Ammonia Creatine Kinase Troponin I Total Protein 6.7 Albumin 3.0 L Vitamin B12 1459 H Serum Folate 24 H TSH Free T4 Urine Color Urine Appearance Urine pH Ur Specific [place] Urine Protein Urine Glucose (UA) Urine Ketones Urine Blood Urine Nitrite Urine Bilirubin Urine Urobilinogen Ur Leukocyte Esterase Urine WBC (Auto) Urine RBC (Auto) Urine Casts (Auto) U Epithel Cells (Auto) Urine Bacteria (Auto) Opiates Screen Negative Methadone Screen Negative Barbiturate Screen Negative Phencyclidine Screen Negative Ur Amphetamines Screen Negative MDMA (Ecstasy) Screen Negative Benzodiazepines Screen Negative Cocaine Screen Negative U Marijuana (THC) Screen Negative HIV 1&2 Antibody Screen HIV P24 Antigen Influenza A (Rapid) Influenza B (Rapid) Blood Type Antibody Screen Current Medications Generic Name Dose Route Start Last Admin Trade Name Freq PRN Reason Stop Dose Admin Acetaminophen 650 mg 11/21/18 23:32 11/22/18 05:32 Tylenol - PO 650 mg Q6H PRN Administration FEVER Albuterol Sulfate 1 amp 11/21/18 23:39 11/22/18 12:34 Ventolin 0.083% Nebulizer Soln - NEB 1 amp Q4H PRN Administration SHORTNESS OF BREATH Amlodipine Besylate 10 mg 11/22/18 10:00 11/22/18 11:21 Norvasc - PO 10 mg DAILY ESTUARDO Administration Sodium Chloride 1,000 mls @ 100 mls/hr 11/21/18 21:15 11/21/18 23:49 Normal Saline - IV 100 mls/hr ASDIR ESTUARDO Administration Lorazepam 1 mg 11/21/18 20:59 Ativan Injection - IVPUSH Q6H PRN SEIZURE Oseltamivir Phosphate 75 mg 11/22/18 10:00 11/22/18 11:21 Tamiflu - PO 11/27/18 09:59 75 mg BID ESTUARDO Administration ASSESSMENT AND PLAN: This is a 63 year old woman with a history of HTN, asthma, headaches, arrhythmia who presented to the ED from her PCP's office after having a seizure. 1. Seizures - Head CT unremarkable - Medication not started as this was a first time seizure in the setting of infection - Monitor for seizures 2. Sepsis (fever, tachycardia) secondary to influenza A - Continue Tamiflu 3. Hypokalemia - Replete potassium 4. Thrombocytopenia, mild - Likely secondary to viral illness - Monitor platelets 5. HTN - Continue Norvasc 6. Asthma - Continue albuterol as needed
[2018-11-22] MEDS: SODIUM CHLORIDE 1,000 ML IV SCH (21:01)
[2018-11-22] MEDS: guaiFENesin 200 MG/10 ML 10 ML UNIT-DOSE CUPS PO PRN (21:17)
[2018-11-23 07:59] LABS: BASO % 0.5 % (0-2.0); EOS % 3.7 % (0-4.5); HEMATOCRIT 35.8 % (32.4-45.2); HEMOGLOBIN 12.1 GM/dL (10.7-15.3); LYMPH % 39.9 % (8-40); MCH 31.1 pg (25.7-33.7); MCHC 33.8 g/dl (32.0-36.0); MEAN CELL VOLUME 92.2 fl (80-96); MONO % 12.4 % (3.8-10.2); NEUT % 43.5 % (42.8-82.8); PLATELET COUNT 130 K/MM3 (134-434); RBC 3.88 M/mm3 (3.60-5.2); RDW 13.4 % (11.6-15.6); WHITE BLOOD COUNT 5.2 K/mm3 (4.0-10.0)
[2018-11-23 08:19] LABS: ANION GAP 7 MMOL/L (8-16); BLOOD UREA NITROGEN 7 mg/dL (7-18); CALCIUM 8.5 mg/dL (8.5-10.1); CHLORIDE 104 mmol/L (98-107); CO2 27 mmol/L (21-32); CREATININE 0.6 mg/dL (0.55-1.3); GLUCOSE,RANDOM 94 mg/dL (74-106); MAGNESIUM 1.9 mg/dL (1.8-2.4); PHOSPHOROUS 3.4 mg/dL (2.5-4.9); POTASSIUM 3.6 mmol/L (3.5-5.1); SODIUM 138 mmol/L (136-145)
[2018-11-23] MEDS ORDERED: PT OWN MED DRAWER 7, Y5N ONE ×2 (08:44→21:03)
[2018-11-23] MEDS: amLODIPine BESYLATE 10 MG TABLET (FP) PO SCH (08:59)
[2018-11-23] MEDS: OSELTAMIVIR PHOSPHATE 75 MG CAPSULE PO SCH ×2 (08:59→21:26)
--- NOTE | 2018-11-23 11:23 | PN ---
Physical Exam: SUBJECTIVE: Patient seen and examined. No acute overnight events. Says she feels no different from yesterday with continued headaches, muscle aches, poor appetite. OBJECTIVE: Vital Signs Period Temp Pulse Resp BP Sys/Faith Pulse Ox Last 24 Hr 98.0 F-99.4 F 80-108 18-20 107-141/59-79 97-98 GENERAL: NAD, a/o x HEAD: NCAT EYES: PERRL, EOMI ENT: Moist mucous membranes. NECK: Supple LUNGS: anterior wheezing HEART: Regular rate and rhythm, S1, S2 without murmur ABDOMEN: Soft, nontender, nondistended, + bowel sounds, no guarding EXTREMITIES: No edema NEUROLOGICAL: Cranial nerves II through XII grossly intact. Gross sensation intact throughout. 5/5 muscle strength throughout. Laboratory Results - last 24 hr 11/21/18 11/23/18 11/23/18 11:15 06:00 06:15 WBC 5.2 RBC 3.88 Hgb 12.1 Hct 35.8 MCV 92.2 MCH 31.1 MCHC 33.8 RDW 13.4 Plt Count 130 L MPV 11.0 Absolute Neuts (auto) 2.3 Neutrophils % 43.5 Lymphocytes % 39.9 D Monocytes % 12.4 H Eosinophils % 3.7 D Basophils % 0.5 Nucleated RBC % 0 Sodium 138 Potassium 3.6 Chloride 104 Carbon Dioxide 27 Anion Gap 7 L BUN 7 Creatinine 0.6 Creat Clearance w eGFR 101.30 Random Glucose 94 Calcium 8.5 Phosphorus 3.4 Magnesium 1.9 Blood Type O NEGATIVE Active Medications Generic Name Dose Route Start Last Admin Trade Name Williq PRN Reason Stop Dose Admin Acetaminophen 650 mg 11/21/18 23:32 11/22/18 05:32 Tylenol - PO 650 mg Q6H PRN Administration FEVER Albuterol Sulfate 1 amp 11/21/18 23:39 11/22/18 12:34 Ventolin 0.083% Nebulizer Soln - NEB 1 amp Q4H PRN Administration SHORTNESS OF BREATH Albuterol/Ipratropium 1 amp 11/23/18 12:00 Duoneb - NEB RQID ESTUARDO Amlodipine Besylate 10 mg 11/22/18 10:00 11/23/18 08:59 Norvasc - PO 10 mg DAILY ESTUARDO Administration Guaifenesin 10 ml 11/22/18 21:01 11/22/18 21:17 Robitussin - PO 10 ml Q4H PRN Administration COUGH Sodium Chloride 1,000 mls @ 100 mls/hr 11/21/18 21:15 11/22/18 21:01 Normal Saline - IV 100 mls/hr ASDIR ESTUARDO Administration Lorazepam 1 mg 11/21/18 20:59 Ativan Injection - IVPUSH Q6H PRN SEIZURE Oseltamivir Phosphate 75 mg 11/22/18 10:00 11/23/18 08:59 Tamiflu - PO 11/27/18 09:59 75 mg BID ESTUARDO Administration IMAGING: -Head CT without contrast: No definite CT evidence of acute intracranial pathology. Paranasal sinus disease. -CXR: No acute chest pathology. -Abdominal US: Unremarkable examination. Normal-appearing gallbladder without evidence of stones -EKG: NSR, VR 82, QTc 450 ASSESSMENT/PLAN: 63 y/o F with PMHx HTN, asthma, Chronic GARCIA, "cardiac arrythmia" (never received ablation, PVC's) presents with new-onset seizure. #New onset Seizure -no seizures since admission. -Likely In the setting of Flu A -Head CT without contrast: No definite CT evidence of acute intracranial pathology -Seizure precautions, Elevate HOB -Neurochecks Q2H -Neurology (Dr. Orourke) consulted -Continue to observe off of AED per neuro -Lorazepam prn for Seizure -Tele #Influenza A -Continue Oseltamivir 75mg PO BID (started on 11/21) -Acetaminophen PRN for fever -Droplet precautions -NS @ 100 mls/hr #Wheezing -likely provoked from viral illness -Duonebs qid #Mild Thrombocytopenia -improving -likely from viral illness #HTN-controlled -Amlodipine 10mg PO Daily #FEN -NS @ 100 mls/hr -Sodium controlled diet #PPX DVT: SCD's (low platelets) dispo: can d/c in the AM if continued improvement Visit type - Emergency Visit Emergency Visit: Yes ED Registration Date: 11/21/18 Care time: The patient presented to the Emergency Department on the above date and was hospitalized for further evaluation of their emergent condition. - New Patient This patient is new to me today: Yes Date on this admission: 11/23/18 - Critical Care Critical Care patient: No
[2018-11-23] MEDS: ALBUTEROL SO4 2.5/IPRATROPIUM 0.5 INH SOL 3 ML VIAL.NEB. NEB SCH ×3 (11:53→20:27)
--- NOTE | 2018-11-23 12:20 | PN ---
Progress Note (short form) - Note Progress Note: Neurology CHIEF COMPLAINT: s/p sz HISTORY OF PRESENT ILLNESS: 63 y/o F with PMH HTN, asthma, chronic GARCIA (dx few months ago), "cardiac arrythmia" (never received ablation, PVC's), who presented to the ED s/p seizure that occurred this afternoon. As per pt and children at bedside, pt had been feeling unwell over the two days prior to admission. She endorsed a fever to 101F, nonproductive cough, and exacerbation of her usual, chronic GARCIA. Also had decreased PO intake. For this reason, she decided to go to her PCP, Dr. Escudero on day of admission for evaluation. While sitting on the examination table , pt c/o nausea, and that she was unable to see. Immediately after, she slumped over, lying down on the examination table. Her eyes rolled back and then to her right side, and her extremities stiffened. Pt had bowel and bladder incontinence. Lasted for less than a minute. When children witnessed the event, they called a nurse in who recommended that pt be brought to [facility] for further evaluation. After event, pt lethargic, but not confused. No focal neuro deficits on admission. Of note, pt has been w/u for chronic GARCIA with neuro Dr. Ammy Eden and has had a brain MRI done which was negative. Was also prescribed ibuprofen and "another medication" for GARCIA, but pt was non-compliant. She uses CBD for her pain and states that it helps. She has also been w/u for cardiac arrhythmia with Dr. Charles of [facility]. Was dx with PVCs and recommended ablation, however her procedure was "always pushed back" as something continually came up , as per children. CT head completed in ED and no acute changes. Although the event is suspicious for seizure, would not start AEDs for first time as patient no prior history and in context of clear precipitant (infection). Management would be to treat underlying infection. Neurologically at baseline and mentating well this AM. No seizure events overnight. Describes pain "all over" and advised ambulation as she has been mostly in bed. Ultrasound of abdomen reviewed and unremarkable Active Medications Acetaminophen (Tylenol -) 650 mg PO Q6H PRN PRN Reason: FEVER Last Admin: 11/22/18 05:32 Dose: 650 mg Albuterol Sulfate (Ventolin 0.083% Nebulizer Soln -) 1 amp NEB Q4H PRN PRN Reason: SHORTNESS OF BREATH Last Admin: 11/22/18 12:34 Dose: 1 amp Albuterol/Ipratropium (Duoneb -) 1 amp NEB RQID [facility] Last Admin: 11/23/18 11:53 Dose: 1 amp Amlodipine Besylate (Norvasc -) 10 mg PO DAILY [facility] Last Admin: 11/23/18 08:59 Dose: 10 mg Guaifenesin (Robitussin -) 10 ml PO Q4H PRN PRN Reason: COUGH Last Admin: 11/22/18 21:17 Dose: 10 ml Sodium Chloride (Normal Saline -) 1,000 mls @ 100 mls/hr IV ASDIR [facility] Last Admin: 11/22/18 21:01 Dose: 100 mls/hr Lorazepam (Ativan Injection -) 1 mg IVPUSH Q6H PRN PRN Reason: SEIZURE Oseltamivir Phosphate (Tamiflu -) 75 mg PO BID [facility] Stop: 11/27/18 09:59 Last Admin: 11/23/18 08:59 Dose: 75 mg PHYSICAL EXAMINATION Vital Signs Period Temp Pulse Resp BP Sys/Faith Pulse Ox Last 24 Hr 98.0 F-99.4 F 80-108 18-20 107-141/59-79 97-98 GENERAL: Sweaty, sleepy. Awake, alert, and fully oriented, in no acute distress. HEAD: Normal with no signs of trauma. EYES: Pupils equal, round and reactive to light, extraocular movements intact, sclera anicteric, conjunctiva clear. EARS, NOSE, THROAT: Ears normal, nares patent, oropharynx clear without exudates. Moist mucous membranes. NECK: Normal range of motion, supple LUNGS: +wheezing b/l HEART: Regular rate and rhythm, normal S1 and S2 without murmur, rub or gallop. ABDOMEN: Soft, +RUQ tenderness on deep palpation. not distended, normoactive bowel sounds LOWER EXTREMITIES: 2+ pt pulses, warm, well-perfused. No calf tenderness. No peripheral edema. NEUROLOGICAL: Cranial nerves II-XII intact, moves all extremities equally, sensory intact, finger to nose normal PSYCHIATRIC: Cooperative. Good eye contact. SKIN: Warm, dry, normal turgor CBCD WBC 5.2 K/mm3 (4.0-10.0) 11/23/18 06:15 RBC 3.88 M/mm3 (3.60-5.2) 11/23/18 06:15 Hgb 12.1 GM/dL (10.7-15.3) 11/23/18 06:15 Hct 35.8 % (32.4-45.2) 11/23/18 06:15 MCV 92.2 fl (80-96) 11/23/18 06:15 MCHC 33.8 g/dl (32.0-36.0) 11/23/18 06:15 RDW 13.4 % (11.6-15.6) 11/23/18 06:15 Plt Count 130 K/MM3 (134-434) L 11/23/18 06:15 MPV 11.0 fl (7.5-11.1) 11/23/18 06:15 CMP Sodium 138 mmol/L (136-145) 11/23/18 06:00 Potassium 3.6 mmol/L (3.5-5.1) 11/23/18 06:00 Chloride 104 mmol/L (98-107) 11/23/18 06:00 Carbon Dioxide 27 mmol/L (21-32) 11/23/18 06:00 Anion Gap 7 MMOL/L (8-16) L 11/23/18 06:00 BUN 7 mg/dL (7-18) 11/23/18 06:00 Creatinine 0.6 mg/dL (0.55-1.3) 11/23/18 06:00 Creat Clearance w eGFR 101.30 (>60) 11/23/18 06:00 Random Glucose 94 mg/dL (74-106) 11/23/18 06:00 Calcium 8.5 mg/dL (8.5-10.1) 11/23/18 06:00 Total Bilirubin 0.3 mg/dL (0.2-1) 11/22/18 05:30 AST 21 U/L (15-37) 11/22/18 05:30 ALT 24 U/L (13-61) 11/22/18 05:30 Alkaline Phosphatase 81 U/L (45-117) 11/22/18 05:30 Total Protein 6.7 g/dl (6.4-8.2) 11/22/18 05:30 Albumin 3.0 g/dl (3.4-5.0) L 11/22/18 05:30 CARDIAC ENZYMES Creatine Kinase 96 U/L (26-192) 11/21/18 15:46 Troponin I < 0.02 ng/ml (0.00-0.05) 11/21/18 15:46 EKG: NSR, no acute ST-t wave changes. biphasic twi v1, qtc ~330ms CXR: without acute abnormality. however official read pending. ASSESSMENT/PLAN: 63 y/o F with PMH HTN, asthma, chronic GARCIA (dx few months ago), "cardiac arrythmia" (never received ablation, PVC's), who presented to the ED s/p seizure that occurred this afternoon. As per pt and children at bedside, pt had been feeling unwell over the two days prior to admission. She endorsed a fever to 101F, nonproductive cough, and exacerbation of her usual, chronic GARCIA. Also had decreased PO intake. For this reason, she decided to go to her PCP, Dr. Escudero on day of admission for evaluation. While sitting on the examination table , pt c/o nausea, and that she was unable to see. Immediately after, she slumped over, lying down on the examination table. Her eyes rolled back and then to her right side, and her extremities stiffened. Pt had bowel and bladder incontinence. Lasted for less than a minute. When children witnessed the event, they called a nurse in who recommended that pt be brought to [facility] for further evaluation. After event, pt lethargic, but not confused. No focal neuro deficits on admission. CT head completed in ED and no acute changes. Although the event is suspicious for seizure, would not start AEDs for first time as patient no prior history and in context of clear precipitant (infection). Management would be to treat underlying infection. Continue Tamiflu, tylenol PRN. Maintain hydration/nutirition. Neurologically at baseline and mentating well this AM. No seizure events overnight. Describes pain "all over" and advised ambulation as she has been mostly in bed. Ultrasound of abdomen reviewed and unremarkable
--- NOTE | 2018-11-23 14:05 | PN ---
Teaching Attending Note Name of Resident: David Valdez ATTENDING PHYSICIAN STATEMENT I saw and evaluated the patient. I reviewed the resident's note and discussed the case with the resident. I agree with the resident's findings and plan as documented. SUBJECTIVE: no fever , but feels aches all over, not ambulating. SOB much improved. no GARCIA , no weakness. OBJECTIVE: NAD Cv: RRR Lungs: CTAB posteriorly, wheezing anteriorly Ext : no edema or erythema. Neuro: EOMI, round equal pupils, reactive to light, no facial droop. strength 5/ 5 in upper and lower extremities proximally and distally. sensation to light touch Nl. reflexes 1+ knee jerk and biceps b/l. ASSESSMENT AND PLAN: 63 y/o lady with h/o Asthma, HTN, arrhythmias and GARCIA , who presented with a seizure in setting of influenz. 1- new onset seizure: in setting of systemic infection. no recurrence. - no AED 2- Influenza A: cont tamiflu ( 3rd dose this am ) sepsis resolved. cont IVF 3- Thrombocytopenia: due to sepsis. improved 4-H/o depression : resume her Mirtazapine 5- H/o Asthma, has anterior wheezing but SOB has much improved. - add Nebs - hold of steroids and symptomatically she is better . will consider if resp status requires 7- DVT PX : heparin Sq possible dc tomorrow
[2018-11-23] MEDS: MIRTAZAPINE 15 MG TABLET (FP) PO SCH (21:26)
[2018-11-23] MEDS: HEPARIN NA (PORCINE) 5,000 UNITS/ML 1ML VIAL SQ SCH (21:27)
[2018-11-23] MEDS: SODIUM CHLORIDE 1,000 ML IV SCH (21:27)
[2018-11-24] MEDS: ALBUTEROL SO4 0.083% IH SOL 2.5 MG/3 ML VIAL.NEB. NEB PRN (05:50)
[2018-11-24] MEDS: HEPARIN NA (PORCINE) 5,000 UNITS/ML 1ML VIAL SQ SCH ×3 (06:12→21:32)
[2018-11-24] MEDS: ACETAMINOPHEN 325 MG TABLET (FP) PO PRN (06:13)
[2018-11-24 07:28] LABS: HEMATOCRIT 36.4 % (32.4-45.2); HEMOGLOBIN 12.3 GM/dL (10.7-15.3); MCH 31.1 pg (25.7-33.7); MCHC 33.9 g/dl (32.0-36.0); MEAN CELL VOLUME 91.9 fl (80-96); MEAN PLT VOLUME 10.4 fl (7.5-11.1); PLATELET COUNT 133 K/MM3 (134-434); RBC 3.96 M/mm3 (3.60-5.2); RDW 13.2 % (11.6-15.6); WHITE BLOOD COUNT 5.5 K/mm3 (4.0-10.0)
[2018-11-24 08:01] LABS: ALBUMIN 3.2 g/dl (3.4-5.0); ALK PHOS 81 U/L (45-117); ANION GAP 7 MMOL/L (8-16); BILIRUBIN,TOTAL 0.3 mg/dL (0.2-1); BLOOD UREA NITROGEN 12 mg/dL (7-18); CALCIUM 8.4 mg/dL (8.5-10.1); CHLORIDE 105 mmol/L (98-107); CO2 29 mmol/L (21-32); CREATININE 0.7 mg/dL (0.55-1.3); GLUCOSE,RANDOM 99 mg/dL (74-106); POTASSIUM 3.6 mmol/L (3.5-5.1); SGOT/AST 22 U/L (15-37); SGPT/ALT 24 U/L (13-61); SODIUM 141 mmol/L (136-145)
[2018-11-24] MEDS: ALBUTEROL SO4 2.5/IPRATROPIUM 0.5 INH SOL 3 ML VIAL.NEB. NEB SCH ×4 (08:23→21:30)
[2018-11-24] MEDS ORDERED: PT OWN MED DRAWER 7, Y5N ONE ×3 (08:39→21:27)
[2018-11-24] MEDS: OSELTAMIVIR PHOSPHATE 75 MG CAPSULE PO SCH ×2 (09:00→21:32)
[2018-11-24] MEDS: amLODIPine BESYLATE 10 MG TABLET (FP) PO SCH (09:00)
--- NOTE | 2018-11-24 09:02 | PN ---
Physical Exam: SUBJECTIVE: Patient seen and examined. She says she feels weak. Also complains of occasional SOB, relieved by nebulizer treatment. OBJECTIVE: Vital Signs Period Temp Pulse Resp BP Sys/Faith Pulse Ox Last 24 Hr 97.9 F-98.9 F 68-80 18-20 101-123/58-78 98-98 GENERAL: The patient is awake, alert, and fully oriented, in no acute distress. LUNGS: Breath sounds equal, bilateral end expiratory wheezes anteriorly, no crackles, no accessory muscle use. HEART: Regular rate and rhythm, S1, S2 without murmur, rub or gallop. ABDOMEN: Soft, nontender, nondistended, normoactive bowel sounds, no guarding, no rebound, no hepatosplenomegaly, no masses. EXTREMITIES: 2+ pulses, warm, well-perfused, no edema. Laboratory Results - last 24 hr 11/24/18 11/24/18 06:10 06:10 WBC 5.5 RBC 3.96 Hgb 12.3 Hct 36.4 MCV 91.9 MCH 31.1 MCHC 33.9 RDW 13.2 Plt Count 133 L MPV 10.4 Sodium 141 Potassium 3.6 Chloride 105 Carbon Dioxide 29 Anion Gap 7 L BUN 12 Creatinine 0.7 Creat Clearance w eGFR 84.79 Random Glucose 99 Calcium 8.4 L Total Bilirubin 0.3 AST 22 ALT 24 Alkaline Phosphatase 81 Total Protein 7.0 Albumin 3.2 L Active Medications Generic Name Dose Route Start Last Admin Trade Name Freq PRN Reason Stop Dose Admin Acetaminophen 650 mg 11/21/18 23:32 11/24/18 06:13 Tylenol - PO 650 mg Q6H PRN Administration FEVER Albuterol Sulfate 1 amp 11/21/18 23:39 11/24/18 05:50 Ventolin 0.083% Nebulizer Soln - NEB 1 amp Q4H PRN Administration SHORTNESS OF BREATH Albuterol/Ipratropium 1 amp 11/23/18 12:00 11/24/18 08:23 Duoneb - NEB 1 amp RQID ESTUARDO Administration Amlodipine Besylate 10 mg 11/22/18 10:00 11/23/18 08:59 Norvasc - PO 10 mg DAILY ESTUARDO Administration Guaifenesin 10 ml 11/22/18 21:01 11/22/18 21:17 Robitussin - PO 10 ml Q4H PRN Administration COUGH Heparin Sodium (Porcine) 5,000 unit 11/23/18 22:00 11/24/18 06:12 Heparin - SQ 5,000 unit TID ESTUARDO Administration Sodium Chloride 1,000 mls @ 100 mls/hr 11/21/18 21:15 11/23/18 21:27 Normal Saline - IV 100 mls/hr ASDIR ESTUARDO Administration Lorazepam 1 mg 11/21/18 20:59 Ativan Injection - IVPUSH Q6H PRN SEIZURE Mirtazapine 15 mg 11/23/18 22:00 11/23/18 21:26 Remeron - PO 15 mg HS ESTUARDO Administration Oseltamivir Phosphate 75 mg 11/22/18 10:00 11/23/18 21:26 Tamiflu - PO 11/27/18 09:59 75 mg BID ESTUARDO Administration ASSESSMENT/PLAN: This is a 63 year old woman with a history of HTN, asthma, headaches, arrhythmia , depression who presented to the ED from her PCP's office after having a seizure. 1. Seizures - No further seizures - Head CT unremarkable - Medication not started as this was a first time seizure in the setting of infection 2. Sepsis (fever, tachycardia) secondary to influenza A - Afebrile, tachycardia resolved - Continue Tamiflu (day 3) - Discontinue IV fluid 3. Hypokalemia - Improved 4. Thrombocytopenia, mild - Likely secondary to sepsis/viral illness - Improving 5. HTN - Continue Norvasc 6. Asthma - Continue DuoNeb, albuterol as needed 7. Depression - Continue Remeron 8. DVT prophylaxis - On heparin subq Visit type - Emergency Visit Emergency Visit: Yes ED Registration Date: 11/21/18 Care time: The patient presented to the Emergency Department on the above date and was hospitalized for further evaluation of their emergent condition. - New Patient This patient is new to me today: No - Critical Care Critical Care patient: No - Discharge Referral Referred to [facility] Med P.C.: No
--- NOTE | 2018-11-24 11:46 | PN ---
Progress Note (short form) - Note Progress Note: Neurology CHIEF COMPLAINT: s/p sz HISTORY OF PRESENT ILLNESS: 63 y/o F with PMH HTN, asthma, chronic GARCIA (dx few months ago), "cardiac arrythmia" (never received ablation, PVC's), who presented to the ED s/p seizure that occurred this afternoon. As per pt and children at bedside, pt had been feeling unwell over the two days prior to admission. She endorsed a fever to 101F, nonproductive cough, and exacerbation of her usual, chronic GARCIA. Also had decreased PO intake. For this reason, she decided to go to her PCP, Dr. Escudero on day of admission for evaluation. While sitting on the examination table , pt c/o nausea, and that she was unable to see. Immediately after, she slumped over, lying down on the examination table. Her eyes rolled back and then to her right side, and her extremities stiffened. Pt had bowel and bladder incontinence. Lasted for less than a minute. When children witnessed the event, they called a nurse in who recommended that pt be brought to [facility] for further evaluation. After event, pt lethargic, but not confused. No focal neuro deficits on admission. Of note, pt has been w/u for chronic GRACIA with neuro Dr. Ammy Eden and has had a brain MRI done which was negative. Was also prescribed ibuprofen and "another medication" for GARCIA, but pt was non-compliant. She uses CBD for her pain and states that it helps. She has also been w/u for cardiac arrhythmia with Dr. Charles of [facility]. Was dx with PVCs and recommended ablation, however her procedure was "always pushed back" as something continually came up , as per children. CT head completed in ED and no acute changes. Although the event is suspicious for seizure, would not start AEDs for first time as patient no prior history and in context of clear precipitant (infection). Management would be to treat underlying infection. Neurologically at baseline and mentating well. No seizure events occurred since admission. Reports some dizzyness but otherwise doing better. Active Medications Acetaminophen (Tylenol -) 650 mg PO Q6H PRN PRN Reason: FEVER Last Admin: 11/24/18 06:13 Dose: 650 mg Albuterol Sulfate (Ventolin 0.083% Nebulizer Soln -) 1 amp NEB Q4H PRN PRN Reason: SHORTNESS OF BREATH Last Admin: 11/24/18 05:50 Dose: 1 amp Albuterol/Ipratropium (Duoneb -) 1 amp NEB RQID [facility] Last Admin: 11/24/18 08:23 Dose: 1 amp Amlodipine Besylate (Norvasc -) 10 mg PO DAILY [facility] Last Admin: 11/24/18 09:00 Dose: 10 mg Guaifenesin (Robitussin -) 10 ml PO Q4H PRN PRN Reason: COUGH Last Admin: 11/22/18 21:17 Dose: 10 ml Heparin Sodium (Porcine) (Heparin -) 5,000 unit SQ TID [facility] Last Admin: 11/24/18 06:12 Dose: 5,000 unit Lorazepam (Ativan Injection -) 1 mg IVPUSH Q6H PRN PRN Reason: SEIZURE Mirtazapine (Remeron -) 15 mg PO HS [facility] Last Admin: 11/23/18 21:26 Dose: 15 mg Oseltamivir Phosphate (Tamiflu -) 75 mg PO BID [facility] Stop: 11/27/18 09:59 Last Admin: 11/24/18 09:00 Dose: 75 mg PHYSICAL EXAMINATION Vital Signs Temperature 98.9 F 11/24/18 06:00 Pulse Rate 80 11/24/18 06:00 Respiratory Rate 18 11/24/18 06:00 Blood Pressure 116/64 11/24/18 06:00 O2 Sat by Pulse Oximetry (%) 98 11/23/18 20:05 GENERAL: Sweaty, sleepy. Awake, alert, and fully oriented, in no acute distress. HEAD: Normal with no signs of trauma. EYES: Pupils equal, round and reactive to light, extraocular movements intact, sclera anicteric, conjunctiva clear. EARS, NOSE, THROAT: Ears normal, nares patent, oropharynx clear without exudates. Moist mucous membranes. NECK: Normal range of motion, supple LUNGS: +wheezing b/l HEART: Regular rate and rhythm, normal S1 and S2 without murmur, rub or gallop. ABDOMEN: Soft, +RUQ tenderness on deep palpation. not distended, normoactive bowel sounds LOWER EXTREMITIES: 2+ pt pulses, warm, well-perfused. No calf tenderness. No peripheral edema. NEUROLOGICAL: Cranial nerves II-XII intact, moves all extremities equally, sensory intact, finger to nose normal PSYCHIATRIC: Cooperative. Good eye contact. SKIN: Warm, dry, normal turgor CBCD WBC 5.5 K/mm3 (4.0-10.0) 11/24/18 06:10 RBC 3.96 M/mm3 (3.60-5.2) 11/24/18 06:10 Hgb 12.3 GM/dL (10.7-15.3) 11/24/18 06:10 Hct 36.4 % (32.4-45.2) 11/24/18 06:10 MCV 91.9 fl (80-96) 11/24/18 06:10 MCHC 33.9 g/dl (32.0-36.0) 11/24/18 06:10 RDW 13.2 % (11.6-15.6) 11/24/18 06:10 Plt Count 133 K/MM3 (134-434) L 11/24/18 06:10 MPV 10.4 fl (7.5-11.1) 11/24/18 06:10 CMP Sodium 141 mmol/L (136-145) 11/24/18 06:10 Potassium 3.6 mmol/L (3.5-5.1) 11/24/18 06:10 Chloride 105 mmol/L (98-107) 11/24/18 06:10 Carbon Dioxide 29 mmol/L (21-32) 11/24/18 06:10 Anion Gap 7 MMOL/L (8-16) L 11/24/18 06:10 BUN 12 mg/dL (7-18) 11/24/18 06:10 Creatinine 0.7 mg/dL (0.55-1.3) 11/24/18 06:10 Creat Clearance w eGFR 84.79 (>60) 11/24/18 06:10 Random Glucose 99 mg/dL (74-106) 11/24/18 06:10 Calcium 8.4 mg/dL (8.5-10.1) L 11/24/18 06:10 Total Bilirubin 0.3 mg/dL (0.2-1) 11/24/18 06:10 AST 22 U/L (15-37) 11/24/18 06:10 ALT 24 U/L (13-61) 11/24/18 06:10 Alkaline Phosphatase 81 U/L (45-117) 11/24/18 06:10 Total Protein 7.0 g/dl (6.4-8.2) 11/24/18 06:10 Albumin 3.2 g/dl (3.4-5.0) L 11/24/18 06:10 CARDIAC ENZYMES Creatine Kinase 96 U/L (26-192) 11/21/18 15:46 Troponin I < 0.02 ng/ml (0.00-0.05) 11/21/18 15:46 EKG: NSR, no acute ST-t wave changes. biphasic twi v1, qtc ~330ms CXR: without acute abnormality. however official read pending. ASSESSMENT/PLAN: 63 y/o F with PMH HTN, asthma, chronic GARCIA (dx few months ago), "cardiac arrythmia" (never received ablation, PVC's), who presented to the ED s/p seizure that occurred this afternoon. As per pt and children at bedside, pt had been feeling unwell over the two days prior to admission. She endorsed a fever to 101F, nonproductive cough, and exacerbation of her usual, chronic GARCIA. Also had decreased PO intake. For this reason, she decided to go to her PCP, Dr. Escudero on day of admission for evaluation. While sitting on the examination table , pt c/o nausea, and that she was unable to see. Immediately after, she slumped over, lying down on the examination table. Her eyes rolled back and then to her right side, and her extremities stiffened. Pt had bowel and bladder incontinence. Lasted for less than a minute. When children witnessed the event, they called a nurse in who recommended that pt be brought to [facility] for further evaluation. After event, pt lethargic, but not confused. No focal neuro deficits on admission. CT head completed in ED and no acute changes. Although the event is suspicious for seizure, would not start AEDs for first time as patient no prior history and in context of clear precipitant (infection). Management would be to treat underlying infection. Continue Tamiflu, tylenol PRN. Maintain hydration/nutirition. Neurologically at baseline and mentating well. No seizure events since overnight on 11/22/18. Ultrasound of abdomen reviewed and unremarkable.
[2018-11-24] MEDS: guaiFENesin 200 MG/10 ML 10 ML UNIT-DOSE CUPS PO PRN (21:32)
[2018-11-24] MEDS: MIRTAZAPINE 15 MG TABLET (FP) PO SCH (21:32)
[2018-11-25] MEDS: HEPARIN NA (PORCINE) 5,000 UNITS/ML 1ML VIAL SQ SCH ×2 (05:55→15:54)
[2018-11-25] MEDS: ALBUTEROL SO4 2.5/IPRATROPIUM 0.5 INH SOL 3 ML VIAL.NEB. NEB SCH ×3 (07:25→15:40)
[2018-11-25] MEDS ORDERED: PT OWN MED DRAWER 7, Y5N ONE ×2 (08:32→08:56)
[2018-11-25] MEDS: OSELTAMIVIR PHOSPHATE 75 MG CAPSULE PO SCH (09:05)
[2018-11-25] MEDS: amLODIPine BESYLATE 10 MG TABLET (FP) PO SCH (09:05)
--- NOTE | 2018-11-25 09:05 | PN ---
Progress Note (short form) - Note Progress Note: Neurology CHIEF COMPLAINT: s/p sz HISTORY OF PRESENT ILLNESS: 63 y/o F with PMH HTN, asthma, chronic GARCIA (dx few months ago), "cardiac arrythmia" (never received ablation, PVC's), who presented to the ED s/p seizure that occurred this afternoon. As per pt and children at bedside, pt had been feeling unwell over the two days prior to admission. She endorsed a fever to 101F, nonproductive cough, and exacerbation of her usual, chronic GARCIA. Also had decreased PO intake. For this reason, she decided to go to her PCP, Dr. Escudero on day of admission for evaluation. While sitting on the examination table , pt c/o nausea, and that she was unable to see. Immediately after, she slumped over, lying down on the examination table. Her eyes rolled back and then to her right side, and her extremities stiffened. Pt had bowel and bladder incontinence. Lasted for less than a minute. When children witnessed the event, they called a nurse in who recommended that pt be brought to [facility] for further evaluation. After event, pt lethargic, but not confused. No focal neuro deficits on admission. Of note, pt has been w/u for chronic GARCIA with neuro Dr. Ammy Eden and has had a brain MRI done which was negative. Was also prescribed ibuprofen and "another medication" for GARCIA, but pt was non-compliant. She uses CBD for her pain and states that it helps. She has also been w/u for cardiac arrhythmia with Dr. Charles of [facility]. Was dx with PVCs and recommended ablation, however her procedure was "always pushed back" as something continually came up , as per children. CT head completed in ED and no acute changes. Although the event is suspicious for seizure, would not start AEDs for first time as patient no prior history and in context of clear precipitant (infection). Management would be to treat underlying infection. Neurologically at baseline and mentating well. No seizure events occurred since admission. Reports some dizzyness but otherwise doing better. Advised to increase hydration. Also should ambulate when able but carefully. Active Medications Acetaminophen (Tylenol -) 650 mg PO Q6H PRN PRN Reason: FEVER Last Admin: 11/24/18 06:13 Dose: 650 mg Albuterol Sulfate (Ventolin 0.083% Nebulizer Soln -) 1 amp NEB Q4H PRN PRN Reason: SHORTNESS OF BREATH Last Admin: 11/24/18 05:50 Dose: 1 amp Albuterol/Ipratropium (Duoneb -) 1 amp NEB RQID [facility] Last Admin: 11/25/18 07:25 Dose: 1 amp Amlodipine Besylate (Norvasc -) 10 mg PO DAILY [facility] Last Admin: 11/24/18 09:00 Dose: 10 mg Guaifenesin (Robitussin -) 10 ml PO Q4H PRN PRN Reason: COUGH Last Admin: 11/24/18 21:32 Dose: 10 ml Heparin Sodium (Porcine) (Heparin -) 5,000 unit SQ TID [facility] Last Admin: 11/25/18 05:55 Dose: 5,000 unit Mirtazapine (Remeron -) 15 mg PO HS [facility] Last Admin: 11/24/18 21:32 Dose: 15 mg Oseltamivir Phosphate (Tamiflu -) 75 mg PO BID [facility] Stop: 11/27/18 09:59 Last Admin: 11/24/18 21:32 Dose: 75 mg PHYSICAL EXAMINATION Vital Signs Period Temp Pulse Resp BP Sys/Faith Pulse Ox Last 24 Hr 97.4 F-98.5 F 70-90 18-20 103-131/60-70 98 GENERAL: Sweaty, sleepy. Awake, alert, and fully oriented, in no acute distress. HEAD: Normal with no signs of trauma. EYES: Pupils equal, round and reactive to light, extraocular movements intact, sclera anicteric, conjunctiva clear. EARS, NOSE, THROAT: Ears normal, nares patent, oropharynx clear without exudates. Moist mucous membranes. NECK: Normal range of motion, supple LUNGS: +wheezing b/l HEART: Regular rate and rhythm, normal S1 and S2 without murmur, rub or gallop. ABDOMEN: Soft, +RUQ tenderness on deep palpation. not distended, normoactive bowel sounds LOWER EXTREMITIES: 2+ pt pulses, warm, well-perfused. No calf tenderness. No peripheral edema. NEUROLOGICAL: Cranial nerves II-XII intact, moves all extremities equally, sensory intact, finger to nose normal PSYCHIATRIC: Cooperative. Good eye contact. SKIN: Warm, dry, normal turgor CBCD WBC 5.5 K/mm3 (4.0-10.0) 11/24/18 06:10 RBC 3.96 M/mm3 (3.60-5.2) 11/24/18 06:10 Hgb 12.3 GM/dL (10.7-15.3) 11/24/18 06:10 Hct 36.4 % (32.4-45.2) 11/24/18 06:10 MCV 91.9 fl (80-96) 11/24/18 06:10 MCHC 33.9 g/dl (32.0-36.0) 11/24/18 06:10 RDW 13.2 % (11.6-15.6) 11/24/18 06:10 Plt Count 133 K/MM3 (134-434) L 11/24/18 06:10 MPV 10.4 fl (7.5-11.1) 11/24/18 06:10 CMP Sodium 141 mmol/L (136-145) 11/24/18 06:10 Potassium 3.6 mmol/L (3.5-5.1) 11/24/18 06:10 Chloride 105 mmol/L (98-107) 11/24/18 06:10 Carbon Dioxide 29 mmol/L (21-32) 11/24/18 06:10 Anion Gap 7 MMOL/L (8-16) L 11/24/18 06:10 BUN 12 mg/dL (7-18) 11/24/18 06:10 Creatinine 0.7 mg/dL (0.55-1.3) 11/24/18 06:10 Creat Clearance w eGFR 84.79 (>60) 11/24/18 06:10 Random Glucose 99 mg/dL (74-106) 11/24/18 06:10 Calcium 8.4 mg/dL (8.5-10.1) L 11/24/18 06:10 Total Bilirubin 0.3 mg/dL (0.2-1) 11/24/18 06:10 AST 22 U/L (15-37) 11/24/18 06:10 ALT 24 U/L (13-61) 11/24/18 06:10 Alkaline Phosphatase 81 U/L (45-117) 11/24/18 06:10 Total Protein 7.0 g/dl (6.4-8.2) 11/24/18 06:10 Albumin 3.2 g/dl (3.4-5.0) L 11/24/18 06:10 CARDIAC ENZYMES Creatine Kinase 96 U/L (26-192) 11/21/18 15:46 Troponin I < 0.02 ng/ml (0.00-0.05) 11/21/18 15:46 EKG: NSR, no acute ST-t wave changes. biphasic twi v1, qtc ~330ms CXR: without acute abnormality. however official read pending. ASSESSMENT/PLAN: 63 y/o F with PMH HTN, asthma, chronic GARCIA (dx few months ago), "cardiac arrythmia" (never received ablation, PVC's), who presented to the ED s/p seizure that occurred this afternoon. As per pt and children at bedside, pt had been feeling unwell over the two days prior to admission. She endorsed a fever to 101F, nonproductive cough, and exacerbation of her usual, chronic GARCIA. Also had decreased PO intake. For this reason, she decided to go to her PCP, Dr. Escudero on day of admission for evaluation. While sitting on the examination table , pt c/o nausea, and that she was unable to see. Immediately after, she slumped over, lying down on the examination table. Her eyes rolled back and then to her right side, and her extremities stiffened. Pt had bowel and bladder incontinence. Lasted for less than a minute. When children witnessed the event, they called a nurse in who recommended that pt be brought to [facility] for further evaluation. After event, pt lethargic, but not confused. No focal neuro deficits on admission. CT head completed in ED and no acute changes. Although the event is suspicious for seizure, would not start AEDs for first time as patient no prior history and in context of clear precipitant (infection). Management would be to treat underlying infection. Continue Tamiflu, tylenol PRN. Maintain hydration/nutirition. Neurologically at baseline and mentating well. No seizure events since admission. Hydration recommended for dizzyness. Ambulation as able. Avoid sudden head movements.
[2018-11-25] MEDS ORDERED: SODIUM CHLORIDE 500 ML IV STA (09:17)
--- NOTE | 2018-11-25 11:58 | PN ---
Teaching Attending Note Name of Resident: Karen Delcid ATTENDING PHYSICIAN STATEMENT I saw and evaluated the patient. I reviewed the resident's note and discussed the case with the resident. I agree with the resident's findings and plan as documented. SUBJECTIVE: no fever or chills. sore throat. No GARCIA . felt a little light headed this am especially with getting up. no diarrhea. no CP or OSB. has mild nonproductive cough OBJECTIVE: NAD, slightly enlarged R tonsil with no exudate Cv: RRR Lungs: CTAB Ext: no edema or erythema. getting up she felt light headed. ASSESSMENT AND PLAN: 63 y/o lady with h/o Asthma, HTN, arrhythmias and GARCIA , who presented with a seizure in setting of influenza. 1- New onset seizure: in setting of systemic infection. no recurrence. - no AED - she waa sinstructed lcearly not to drive until cleared by neuro as out pt 2- Influenza A: cont tamiflu to complete full 5 dyas sepsis resolved. light headed with getitng up, orthostatics neg. gave a small bolus this am . will reevaluate gait 3- Thrombocytopenia: due to sepsis. improved 4-H/o depression : Mirtazapine 5- H/o Asthma DC home today
--- NOTE | 2018-11-25 12:58 | DS ---
Physical Exam: SUBJECTIVE: Patient seen and examined this AM. No seizure activity since admission. Denies fevers, chills, body aches. No acute overnight events. OBJECTIVE: Vital Signs Period Temp Pulse Resp BP Sys/Faith Pulse Ox Last 24 Hr 97.3 F-98.5 F 70-90 20-20 106-133/62-79 98-98 PHYSICAL EXAM GENERAL: A&Ox3, NAD HEAD: NCAT EYES: PERRL, EOMI ENT: Moist mucous membranes. NECK: Supple LUNGS: CTA B/L HEART: Regular rate and rhythm, S1, S2 without murmur ABDOMEN: Soft, nontender, nondistended, + bowel sounds, no guarding EXTREMITIES: No edema NEUROLOGICAL: Cranial nerves II through XII grossly intact. Gross sensation intact throughout. 5/5 muscle strength throughout. SKIN: Warm, dry LABS Laboratory Last Values WBC 5.5 K/mm3 (4.0-10.0) 11/24/18 06:10 RBC 3.96 M/mm3 (3.60-5.2) 11/24/18 06:10 Hgb 12.3 GM/dL (10.7-15.3) 11/24/18 06:10 Hct 36.4 % (32.4-45.2) 11/24/18 06:10 MCV 91.9 fl (80-96) 11/24/18 06:10 MCH 31.1 pg (25.7-33.7) 11/24/18 06:10 MCHC 33.9 g/dl (32.0-36.0) 11/24/18 06:10 RDW 13.2 % (11.6-15.6) 11/24/18 06:10 Plt Count 133 K/MM3 (134-434) L 11/24/18 06:10 MPV 10.4 fl (7.5-11.1) 11/24/18 06:10 Absolute Neuts (auto) 2.3 K/mm3 (1.5-8.0) 11/23/18 06:15 Neutrophils % 43.5 % (42.8-82.8) 11/23/18 06:15 Neutrophils % (Manual) 46.1 % (42.8-82.8) 11/22/18 05:30 Band Neutrophils % 1.9 % 11/22/18 05:30 Lymphocytes % 39.9 % (8-40) D 11/23/18 06:15 Lymphocytes % (Manual) 33.7 % (8-40) 11/22/18 05:30 Monocytes % 12.4 % (3.8-10.2) H 11/23/18 06:15 Monocytes % (Manual) 18 % (3.8-10.2) H 11/22/18 05:30 Eosinophils % 3.7 % (0-4.5) D 11/23/18 06:15 Eosinophils % (Manual) 0.0 % (0-4.5) 11/22/18 05:30 Basophils % 0.5 % (0-2.0) 11/23/18 06:15 Basophils % (Manual) 0.0 % (0-2.0) 11/22/18 05:30 Myelocytes % (Man) 0 % (0-2) 11/22/18 05:30 Promyelocytes % (Man) 0 % (0-2) 11/22/18 05:30 Blast Cells % (Manual) 0 % (0-0) 11/22/18 05:30 Nucleated RBC % 0 % (0-0) 11/23/18 06:15 Metamyelocytes 0 % (0-2) 11/22/18 05:30 Hypochromia 0 11/22/18 05:30 Toxic Granulation 0 11/22/18 05:30 Dohle Bodies 0 11/22/18 05:30 Platelet Estimate Decreased 11/22/18 05:30 Polychromasia 0 11/22/18 05:30 Poikilocytosis 0 11/22/18 05:30 Basophilic Stippling 0 11/22/18 05:30 Anisocytosis 0 11/22/18 05:30 Microcytosis 0 11/22/18 05:30 Macrocytosis 0 11/22/18 05:30 Spherocytes 0 11/22/18 05:30 Sickle Cells 0 11/22/18 05:30 Target Cells 0 11/22/18 05:30 Tear Drop Cells 0 11/22/18 05:30 Ovalocytes 0 11/22/18 05:30 Stomatocytes 0 11/22/18 05:30 Helmet Cells 0 11/22/18 05:30 [place] Bodies 0 11/22/18 05:30 [place] Rings 0 11/22/18 05:30 Sana Cells 0 11/22/18 05:30 Acanthocytes (Spur) 0 11/22/18 05:30 Rouleaux 0 11/22/18 05:30 Fragmented RBCs 0 11/22/18 05:30 Schistocytes 0 11/22/18 05:30 PT with INR 12.50 SEC (9.7-13.0) 11/21/18 15:46 INR 1.06 (0.83-1.09) 11/21/18 15:46 PTT (Actin FS) 36.1 SECONDS (25.2-36.5) 11/21/18 15:46 Sodium 141 mmol/L (136-145) 11/24/18 06:10 Potassium 3.6 mmol/L (3.5-5.1) 11/24/18 06:10 Chloride 105 mmol/L (98-107) 11/24/18 06:10 Carbon Dioxide 29 mmol/L (21-32) 11/24/18 06:10 Anion Gap 7 MMOL/L (8-16) L 11/24/18 06:10 BUN 12 mg/dL (7-18) 11/24/18 06:10 Creatinine 0.7 mg/dL (0.55-1.3) 11/24/18 06:10 Creat Clearance w eGFR 84.79 (>60) 11/24/18 06:10 Random Glucose 99 mg/dL (74-106) 11/24/18 06:10 Hemoglobin A1c % 5.8 % (4.2-6.3) 11/21/18 15:46 Lactic Acid 0.9 mmol/L (0.4-2.0) 11/21/18 15:46 Calcium 8.4 mg/dL (8.5-10.1) L 11/24/18 06:10 Phosphorus 3.4 mg/dL (2.5-4.9) 11/23/18 06:00 Magnesium 1.9 mg/dL (1.8-2.4) 11/23/18 06:00 Total Bilirubin 0.3 mg/dL (0.2-1) 11/24/18 06:10 AST 22 U/L (15-37) 11/24/18 06:10 ALT 24 U/L (13-61) 11/24/18 06:10 Alkaline Phosphatase 81 U/L (45-117) 11/24/18 06:10 Ammonia 12.20 umol/L (11-32) 11/21/18 15:46 Creatine Kinase 96 U/L (26-192) 11/21/18 15:46 Troponin I < 0.02 ng/ml (0.00-0.05) 11/21/18 15:46 Total Protein 7.0 g/dl (6.4-8.2) 11/24/18 06:10 Albumin 3.2 g/dl (3.4-5.0) L 11/24/18 06:10 Vitamin B12 1459 pg/ml (193-986) H 11/22/18 05:30 Serum Folate 24 ng/mL (3.1-17.5) H 11/22/18 05:30 TSH 0.52 uIU/ml (0.358-3.74) 11/21/18 21:25 Free T4 1.04 ng/dl (0.76-1.46) 11/21/18 21:25 Urine Color Yellow 11/21/18 15:46 Urine Appearance Clear 11/21/18 15:46 Urine pH 6.5 (5.0-8.0) 11/21/18 15:46 Ur Specific Echo 1.008 (1.010-1.035) L 11/21/18 15:46 Urine Protein Negative (NEGATIVE) 11/21/18 15:46 Urine Glucose (UA) Negative (NEGATIVE) 11/21/18 15:46 Urine Ketones 1+ (NEGATIVE) H 11/21/18 15:46 Urine Blood Negative (NEGATIVE) 11/21/18 15:46 Urine Nitrite Negative (NEGATIVE) 11/21/18 15:46 Urine Bilirubin Negative (NEGATIVE) 11/21/18 15:46 Urine Urobilinogen 0.2 mg/dL (0.2-1.0) 11/21/18 15:46 Ur Leukocyte Esterase Trace (NEGATIVE) 11/21/18 15:46 Urine WBC (Auto) 1 /hpf (0-5) 11/21/18 15:46 Urine RBC (Auto) 5 /hpf (0-4) 11/21/18 15:46 Urine Casts (Auto) 1 /lpf (0-8) 11/21/18 15:46 U Epithel Cells (Auto) 0.4 /HPF (0-5/HPF) 11/21/18 15:46 Urine Bacteria (Auto) 16.1 /hpf (NEGATIVE) 11/21/18 15:46 Opiates Screen Negative ng/ml (AUHSND=139) 11/22/18 00:05 Methadone Screen Negative ng/ml (TBWJVZ=945) 11/22/18 00:05 Barbiturate Screen Negative ng/ml (QDQHUP=237) 11/22/18 00:05 Phencyclidine Screen Negative ng/ml (CUTOFF=25) 11/22/18 00:05 Ur Amphetamines Screen Negative ng/ml (ZUDEQF=622) 11/22/18 00:05 MDMA (Ecstasy) Screen Negative ng/ml (QSSHCN=222) 11/22/18 00:05 Benzodiazepines Screen Negative ng/ml (LNBGYI=150) 11/22/18 00:05 Cocaine Screen Negative ng/ml (BHQFSB=062) 11/22/18 00:05 U Marijuana (THC) Screen Negative ng/ml (CUTOFF=50) 11/22/18 00:05 HIV 1&2 Antibody Screen Negative 11/21/18 22:31 HIV P24 Antigen Negative 11/21/18 22:31 Influenza A (Rapid) Positive A 11/21/18 16:03 Influenza B (Rapid) Negative 11/21/18 16:03 Blood Type O NEGATIVE 11/21/18 15:46 Antibody Screen Negative 11/21/18 15:46 Microbiology 11/21/18 18:31 Blood - Peripheral Venous Blood Culture - Preliminary NO GROWTH OBTAINED AFTER 72 HOURS, INCUBATION TO CONTINUE FOR 2 DAYS. 11/21/18 18:31 Blood - Peripheral Venous Blood Culture - Preliminary NO GROWTH OBTAINED AFTER 72 HOURS, INCUBATION TO CONTINUE FOR 2 DAYS. 11/21/18 20:25 Urine - Urine Clean Catch Urine Culture - Final Contaminated: Please Repeat IMAGING: -Head CT without contrast: No definite CT evidence of acute intracranial pathology. Paranasal sinus disease. -CXR: No acute chest pathology. -Abdominal US: Unremarkable examination. Normal-appearing gallbladder without evidence of stones -EKG: NSR, VR 82, QTc 450 HOSPITAL COURSE: Date of Admission:11/21/18 Date of Discharge: 11/25/18 63 y/o F with PMHx HTN, asthma, Chronic GARCIA, "cardiac arrythmia" (never received ablation, PVC's) presents with new-onset seizure. Imaging and micro noted above. Patient was found to be in sepsis due to Influenza A + for which she was started on Tamiflu. Neurology was consulted and suggested observation without initiating AEDs. Patient complained of dizziness for which she was hydrated and her sx's resolved. Patient remained at her baseline without any further seizure activity and without focal neurological deficits during her stay. Patient was able to ambulate slowly but without difficulty or accompanying dizziness. Patient was instructed to avoid driving or operating heavy machinery until she is cleared by neurology. She was discharged home with strict instruction to follow up with Neurology and for medication compliance. Minutes to complete discharge: 36 Discharge Summary Reason For Visit: INFLUENZA DUE TO INFLUENZA VIRUS/SEIZURE Current Active Problems Influenza A (Acute) Seizure (Acute) Condition: Improved - Instructions Diet, Activity, Other Instructions: You were admitted to the hospital because you had a seizure due to Influenza. You were seen by a neurologist and had no further seizures. Medication Changes: 1. Continue Tamiflu (oseltamivir) 75mg for 3 more doses Follow up with the following physicians: 1. Primary care physician in one week 2. Neurologist--Dr. Orourke in one week YOU CANNOT OPERATE ANY HEAVY MACHINERY OR DRIVE UNTIL YOU HAVE FOLLOWED UP WITH AND BEEN CLEARED BY YOUR NEUROLOGIST Continue to drink plenty of fluids Continue all your other medications as prescribed Please return to the ER if you have any signs or symptoms of chest pain, shortness of breath, uncontrollable fever, chills, nausea, vomiting, numbness, tingling, or weakness in any part of your body, changes in vision, slurred speech, changes in speech/gait, or dizziness. Please return to the ER if symptoms persist, worsen, or new symptoms arise. Referrals: Luis Alfredo Orourke MD [Staff Physician] - Disposition: HOME - Home Medications Comprehensive Discharge Medication List: Ambulatory Orders Albuterol Sulfate Inhaler - [Ventolin HFA Inhaler -] 2 inh PO Q6H PRN 11/21/18 Amlodipine Besylate 10 mg PO DAILY 11/21/18 Mirtazapine 15 mg PO HS 11/21/18 Oseltamivir Phosphate [Tamiflu -] 75 mg PO BID #3 capsule 11/25/18 This patient is new to me today: No Emergency Visit: Yes ED Registration Date: 11/21/18 Care time: The patient presented to the Emergency Department on the above date and was hospitalized for further evaluation of their emergent condition. Critical Care patient: No - Discharge Referral Referred to [facility] No
[2018-11-25 14:00] VITALS: BP 106/63; PULSE 86; TEMP 98.3
== END 2018-11-25 17:26 | disposition home or self-care (01) | DRG 720 ==
LOC: SUPCPDRO 15:22 → JER 15:22 → JERBED 18:45 → J4S 23:00
PROVIDERS: ADMIT Internal Medicine; ATTEND Internal Medicine
DX: A41.89 Other specified sepsis (principal); J09.X2 Influenza due to identified novel influenza A virus with other respiratory manifestations; D69.6 Thrombocytopenia, unspecified; I10 Essential (primary) hypertension; R56.9 Unspecified convulsions; F32.9 Major depressive disorder, single episode, unspecified; E87.6 Hypokalemia; J45.909 Unspecified asthma, uncomplicated
CPT/HCPCS: 36415; 70450-TC; 71045-TC-FY; 76705-TC; 80048; 80053; 80307; 81003; 82140; 82550; 82607; 82746; 83036; 83605; 83735; 84100; 84207; 84439; 84443; 84484; 85025; 85027; 85610; 85730; 86850; 86900; 86901; 87040; 87086; 87389; 87522; 87804; 93005; 93010; 94640; 97116-GP; 97161-GP; 99285-25; J0131; J1644; J7030